=== PATIENT | female | born 1965 | race Caucasian/White ===

== ENCOUNTER → 2018-01-18 | Outpatient (CLI) | payer BC, OTHER ==
[2018-01-18 13:39] LABS: BASO % 0.6 % (0.0-1.0); EOS # 0.2 10^3/uL (0.0-0.50); EOS % 2.2 % (0.0-3.0); HEMATOCRIT 40.1 % (36.0-47.0); HEMOGLOBIN 12.9 g/dl (12.0-15.5); IMMATURE GRANULOCYTE % 0.6 % (0-3.0); LYMPH # 2.1 10^3/uL (1.5-4.5); LYMPH % 30.5 % (24.0-44.0); MEAN CORPUSCULAR HGB CONC 32.2 g/dl (32.0-36.5); MEAN CORPUSCULAR VOLUME 90.1 fl (80.0-96.0); MONO # 0.4 10^3/uL (0.0-0.8); MONO % 5.7 % (0.0-5.0); NEUTROPHILS # 4.1 10^3/uL (1.8-7.7); NEUTROPHILS % 60.4 % (36.0-66.0); PLATELET COUNT, AUTOMATED 323 10^3/uL (150-450); RED BLOOD COUNT 4.45 10^6/uL (4.00-5.40); RED CELL DISTRIBUTION WIDTH 11.9 % (11.5-14.5); WHITE BLOOD COUNT 6.8 10^3/uL (4.0-10.0)
[2018-01-18 14:33] LABS: ALBUMIN 3.2 GM/DL (3.2-5.2); ALBUMIN/GLOBULIN RATIO 0.82 (1.00-1.93); ALKALINE PHOSPHATASE 51 U/L (45-117); ALT/SGPT 16 U/L (12-78); ANION GAP 8 MEQ/L (8-16); AST/SGOT 14 U/L (7-37); BILIRUBIN,TOTAL 0.3 MG/DL (0.2-1.0); BLOOD UREA NITROGEN 9 MG/DL (7-18); C REACTIVE PROTEIN QUANTITATIV 1.28 MG/DL (0.00-0.30); CALCIUM LEVEL 8.2 MG/DL (8.5-10.1); CARBON DIOXIDE LEVEL 26 MEQ/L (21-32); CHLORIDE LEVEL 106 MEQ/L (98-107); CHOLESTEROL LEVEL 188 MG/DL (<200); CREATININE FOR GFR 0.74 MG/DL (0.55-1.30); FREE T4 0.87 NG/DL (0.76-1.46); GLOMERULAR FILTRATION RATE > 60.0 (>51); GLUCOSE, FASTING 103 MG/DL (70-100); HDL CHOLESTEROL 39 MG/DL (>40); LDL CHOLESTEROL 115 MG/DL (<100); NON-HDL-C 149 MG/DL; POTASSIUM SERUM 4.5 MEQ/L (3.5-5.1); SODIUM LEVEL 140 MEQ/L (136-145); TOTAL 25(OH) VITAMIN D 18.4 NG/ML (30.0-100.0); TOTAL PROTEIN 7.1 GM/DL (6.4-8.2); TRIGLYCERIDES LEVEL 171 MG/DL (<150)
[2018-01-18 15:29] LABS: ERYTHROCYTE SEDIMENTATION RATE 23 mm/hr (0-30)
== END ==
LOC: M SMT 09:25
DX: Z13.0 Encounter for screening for diseases of the blood and blood-forming organs and certain disorders involving the immune mechanism (principal); Z13.29 Encounter for screening for other suspected endocrine disorder; Z13.220 Encounter for screening for lipoid disorders; E55.9 Vitamin D deficiency, unspecified; R79.82 Elevated C-reactive protein (CRP)
CPT/HCPCS: 84443

== ENCOUNTER → 2018-03-05 | Outpatient (CLI) | payer BC, OTHER ==
[~2018-03-05] MED LIST: /ONDA4TA PO; AVIATAB PO; BUPR200T PO; CYMB1CAP PO; MOME50SP; PROZ20CA11 PO; [UNRECOGNIZED DRUG - CODE] PO
--- NOTE | 2018-03-05 12:10 | REP ---
Clinical: Bilateral hand pain. Technique: AP, lateral, and bilateral oblique views of the right and left hand. Findings: Generalized age-related changes are appreciated. The joint spaces appear symmetric and normal. No overt osteoarthritic or inflammatory arthritic changes are and identified. Surrounding soft tissues are normal. No acute fracture or dislocation. Impression: Normal symmetric age-appropriate appearance of the bilateral hands. No overt inflammatory/osteoarthritic degenerative changes appreciated. Electronically Signed by Isaac Fofana MD 03/05/2018 12:02 P
[2018-03-05 15:13] LABS: FERRITIN 72 NG/ML (8-252); IRON (FE) 90 UG/DL (50-170); PERCENT SATURATION 19.8 % (13.2-45.0); RHEUMATOID FACTOR QUANT < 10.0 IU/ML (<15.0); TOTAL IRON BINDING CAPACITY 454 UG/DL (250-450); URIC ACID 5.2 MG/DL (2.6-6.0)
[2018-03-06 14:53] LABS: ANTINUCLEAR ANTIBODIES DIRECT Negative (Negative); Lyme Disease IgG/IgM Antibodie <0.91 ISR (0.00-0.90); Lyme Disease IgM Ab Quantitati <0.80 index (0.00-0.79)
[2018-03-08 00:06] LABS: CYCLIC CITRULLINATED PEPTIDE 5 units (0-19)
== END ==
LOC: M SMT 11:16
PROVIDERS: ATTEND Family Medicine
DX: M25.549 Pain in joints of unspecified hand (principal); R79.82 Elevated C-reactive protein (CRP)

== ENCOUNTER → 2018-03-12 | Outpatient (CLI) | payer BC, OTHER ==
--- NOTE | 2018-03-16 14:25 | HOLTMON ---
[facility] Test Date: 2018-03-12 Pat Name: MARIA ELENA VELARDE Department: Room: - Gender: Secy: Venessa Machado/GABRIELE BRANCH : 1965 Requested By: BRITTANY LISA Order Number: [id number] Reading MD: Arthur Trejo Interpretive Statements Patient was monitored for 48 hours. 47 hours and 42 minutes were usable for analysis. Baseline mechanism was sinus rhythm with normal AV conduction and narrow QRS complex. Minimum HR was 64 bpm, maximum HR 136 bpm. There were no pauses, no PVC's and no atrial fibrillation. Total 180 PAC's were noted including 3 atrial couplets. No manual transmissions. Essentially normal Holter monitor. Electronically Signed On 03-16-2018 14:25:30 EST by Arthur Trejo
== END ==
LOC: M EKG 13:47
PROVIDERS: ATTEND Family Medicine
DX: R00.0 Tachycardia, unspecified (principal)

== ENCOUNTER 2018-08-09 06:29 | Emergency (ER) | payer BC, OTHER ==
[~2018-08-09] VITALS: Ht 167.6 cm; Wt 75.9 kg
[~2018-08-09 06:29] MED LIST changes: -/ONDA4TA PO; +ONDA-1 PO
[2018-08-09] MEDS ORDERED: GABA-843 PO (06:46)
[2018-08-09] MEDS ORDERED: PRIS100T PO (06:46)
[2018-08-09] MEDS ORDERED: CLON0.5T17 PO (06:46)
[2018-08-09] MEDS ORDERED: ACETAMINOPHEN 325 MG TAB PO ONE (08:00)
[2018-08-09] MEDS ORDERED: ONDANSETRON 4 MG ORAL DISINTEGRATING TAB (Q0162 PER 1MG) PO ONE (08:00)
[2018-08-09 08:35] LABS: BASO % 0.4 % (0.0-1.0); HEMATOCRIT 39.5 % (36.0-47.0); HEMOGLOBIN 13.2 g/dl (12.0-15.5); LYMPH # 0.4 10^3/uL (1.5-4.5); LYMPH % 8.1 % (24.0-44.0); MEAN CORPUSCULAR HEMOGLOBIN 30.1 pg (27.0-33.0); MEAN CORPUSCULAR HGB CONC 33.4 g/dl (32.0-36.5); MONO # 0.3 10^3/uL (0.0-0.8); MONO % 6.2 % (0.0-5.0); NEUTROPHILS % 85.1 % (36.0-66.0); PLATELET COUNT, AUTOMATED 230 10^3/uL (150-450); RED BLOOD COUNT 4.39 10^6/uL (4.00-5.40); WHITE BLOOD COUNT 4.7 10^3/uL (4.0-10.0)
[2018-08-09 09:03] LABS: ALT/SGPT 23 U/L (12-78); BILIRUBIN,DIRECT 0.1 MG/DL (0.0-0.2); BILIRUBIN,TOTAL 0.3 MG/DL (0.2-1.0); BLOOD UREA NITROGEN 6 MG/DL (7-18); C REACTIVE PROTEIN QUANTITATIV 8.21 MG/DL (0.00-0.30); CALCIUM LEVEL 8.1 MG/DL (8.5-10.1); CARBON DIOXIDE LEVEL 24 MEQ/L (21-32); CHLORIDE LEVEL 105 MEQ/L (98-107); CREATININE FOR GFR 0.81 MG/DL (0.55-1.30); ERYTHROCYTE SEDIMENTATION RATE 34 mm/hr (0-30); GLOMERULAR FILTRATION RATE > 60.0 (>51); GLUCOSE, FASTING 121 MG/DL (70-100); POTASSIUM SERUM 3.8 MEQ/L (3.5-5.1); SODIUM LEVEL 136 MEQ/L (136-145); TOTAL PROTEIN 6.8 GM/DL (6.4-8.2)
[2018-08-09 10:01] VITALS: BP 99/60
[2018-08-10 17:14] LABS: Lyme Disease IgG/IgM Antibodie <0.91 ISR (0.00-0.90); Lyme Disease IgM Ab Quantitati <0.80 index (0.00-0.79)
== END 2018-08-09 10:06 | disposition home or self-care (01) ==
LOC: M ED 06:29
DX: B34.9 Viral infection, unspecified (principal); R11.2 Nausea with vomiting, unspecified; R19.7 Diarrhea, unspecified; R51 Headache; F41.9 Anxiety disorder, unspecified; F32.9 Major depressive disorder, single episode, unspecified; Z79.899 Other long term (current) drug therapy; Z79.3 Long term (current) use of hormonal contraceptives
CPT/HCPCS: 36415; 80048; 80076; 85025; 85652; 86140; 86617; 99284; Q0162

== ENCOUNTER → 2018-11-14 | Outpatient (CLI) | payer BC, OTHER ==
[~2018-11-14] MED LIST changes: +CLON0.5T17 PO; +GABA-843 PO; +PRIS100T PO
[2018-11-14 13:10] LABS: BASO # 0.1 10^3/uL (0.0-0.2); BASO % 0.7 % (0.0-1.0); EOS # 0.1 10^3/uL (0.0-0.5); EOS % 1.6 % (0.0-3.0); HEMATOCRIT 40.4 % (36.0-47.0); HEMOGLOBIN 13.1 g/dl (12.0-15.5); LYMPH # 1.8 10^3/uL (1.5-5.0); LYMPH % 26.8 % (24.0-44.0); MEAN CORPUSCULAR HEMOGLOBIN 29.7 pg (27.0-33.0); MEAN CORPUSCULAR HGB CONC 32.4 g/dl (32.0-36.5); MEAN CORPUSCULAR VOLUME 91.6 fl (80.0-96.0); MONO # 0.5 10^3/uL (0.0-0.8); NEUTROPHILS # 4.4 10^3/uL (1.5-8.5); NEUTROPHILS % 63.6 % (36.0-66.0); PLATELET COUNT, AUTOMATED 317 10^3/uL (150-450); RED BLOOD COUNT 4.41 10^6/uL (4.00-5.40); WHITE BLOOD COUNT 6.8 10^3/uL (4.0-10.0)
[2018-11-14 13:24] LABS: ALBUMIN 3.4 GM/DL (3.2-5.2); ALT/SGPT 17 U/L (12-78); BILIRUBIN,TOTAL 0.4 MG/DL (0.2-1.0); BLOOD UREA NITROGEN 8 MG/DL (7-18); C REACTIVE PROTEIN QUANTITATIV 1.92 MG/DL (0.00-0.30); CALCIUM LEVEL 8.7 MG/DL (8.5-10.1); CARBON DIOXIDE LEVEL 28 MEQ/L (21-32); CHLORIDE LEVEL 105 MEQ/L (98-107); CHOLESTEROL LEVEL 202 MG/DL (<200); CREATININE FOR GFR 0.76 MG/DL (0.55-1.30); FREE T4 0.86 NG/DL (0.76-1.46); GLOMERULAR FILTRATION RATE > 60.0 (>51); GLUCOSE, FASTING 96 MG/DL (70-100); HDL CHOLESTEROL 44 MG/DL (>40); LDL CHOLESTEROL 121 MG/DL (<100); NON-HDL-C 158 MG/DL; POTASSIUM SERUM 4.6 MEQ/L (3.5-5.1); SODIUM LEVEL 139 MEQ/L (136-145); TOTAL PROTEIN 7.3 GM/DL (6.4-8.2); TRIGLYCERIDES LEVEL 183 MG/DL (<150)
[2018-11-14 13:26] LABS: TOTAL 25(OH) VITAMIN D 27.1 NG/ML (30.0-100.0)
[2018-11-14 14:29] LABS: ERYTHROCYTE SEDIMENTATION RATE 28 mm/hr (0-30)
== END ==
LOC: M SMT 09:08
PROVIDERS: ATTEND Family Medicine
DX: Z13.220 Encounter for screening for lipoid disorders (principal); Z13.0 Encounter for screening for diseases of the blood and blood-forming organs and certain disorders involving the immune mechanism; Z13.29 Encounter for screening for other suspected endocrine disorder; R79.82 Elevated C-reactive protein (CRP); E55.9 Vitamin D deficiency, unspecified

== ENCOUNTER → 2019-03-04 | Outpatient (CLI) | payer OTHER, BC ==
[2019-03-04 13:05] LABS: BASO % 0.5 % (0.0-1.0); BLOOD UREA NITROGEN 12 MG/DL (7-18); CALCIUM LEVEL 8.6 MG/DL (8.5-10.1); CARBON DIOXIDE LEVEL 28 MEQ/L (21-32); CHLORIDE LEVEL 105 MEQ/L (98-107); CREATININE FOR GFR 0.74 MG/DL (0.55-1.30); EOS # 0.2 10^3/uL (0.0-0.5); EOS % 2.5 % (0.0-3.0); GLOMERULAR FILTRATION RATE > 60.0 (>51); GLUCOSE, FASTING 92 MG/DL (70-100); HEMATOCRIT 43.5 % (36.0-47.0); HEMOGLOBIN 13.4 g/dl (12.0-15.5); LYMPH # 2.4 10^3/uL (1.5-5.0); LYMPH % 30.6 % (24.0-44.0); MEAN CORPUSCULAR HEMOGLOBIN 28.6 pg (27.0-33.0); MEAN CORPUSCULAR HGB CONC 30.8 g/dl (32.0-36.5); MEAN CORPUSCULAR VOLUME 92.9 fl (80.0-96.0); MONO # 0.5 10^3/uL (0.0-0.8); MONO % 6.1 % (0.0-5.0); NEUTROPHILS # 4.8 10^3/uL (1.5-8.5); NEUTROPHILS % 59.9 % (36.0-66.0); PLATELET COUNT, AUTOMATED 334 10^3/uL (150-450); RED BLOOD COUNT 4.68 10^6/uL (4.00-5.40); SODIUM LEVEL 139 MEQ/L (136-145); WHITE BLOOD COUNT 7.9 10^3/uL (4.0-10.0)
[2019-03-04 13:16] LABS: INR 1.04; PROTHROMBIN TIME 13.3 SECONDS (11.8-14.0)
== END ==
LOC: M PLALAB 10:41
PROVIDERS: ATTEND Family Medicine
DX: M51.86 Other intervertebral disc disorders, lumbar region (principal)

== ENCOUNTER → 2019-09-09 | Outpatient (REF) | payer OTHER | LOC: M LAB REF 15:30 | PROVIDERS: ATTEND Family Medicine | DX: N39.46 Mixed incontinence (principal) ==

== ENCOUNTER → 2020-09-16 | Outpatient (REF) | payer OTHER ==
[~2020-09-16] MED LIST changes: +GABA-282 PO; -GABA-843 PO
== END ==
LOC: M LAB REF 14:58
PROVIDERS: ATTEND Physician Assistant
DX: N39.0 Urinary tract infection, site not specified (principal)

== ENCOUNTER → 2020-10-19 | Outpatient (CLI) | payer BC, OTHER ==
[2020-10-19 13:10] LABS: BASO # 0.1 10^3/uL (0.0-0.2); BASO % 0.8 % (0.0-1.0); EOS # 0.1 10^3/uL (0.0-0.5); EOS % 1.8 % (0.0-3.0); HEMATOCRIT 40.4 % (36.0-47.0); HEMOGLOBIN 13.1 g/dl (12.0-15.5); LYMPH # 1.6 10^3/uL (1.5-5.0); LYMPH % 25.2 % (24.0-44.0); MEAN CORPUSCULAR HEMOGLOBIN 29.2 pg (27.0-33.0); MEAN CORPUSCULAR HGB CONC 32.4 g/dl (32.0-36.5); MEAN CORPUSCULAR VOLUME 90.2 fl (80.0-96.0); MONO # 0.4 10^3/uL (0.0-0.8); MONO % 6.9 % (2.0-8.0); NEUTROPHILS # 4.1 10^3/uL (1.5-8.5); PLATELET COUNT, AUTOMATED 342 10^3/uL (150-450); RED BLOOD COUNT 4.48 10^6/uL (4.00-5.40); WHITE BLOOD COUNT 6.2 10^3/uL (4.0-10.0)
[2020-10-19 15:13] LABS: ALBUMIN 3.7 GM/DL (3.2-5.2); ALT/SGPT 19 U/L (12-78); BILIRUBIN,TOTAL 0.3 MG/DL (0.2-1.0); BLOOD UREA NITROGEN 8 MG/DL (7-18); CALCIUM LEVEL 9.1 MG/DL (8.5-10.1); CARBON DIOXIDE LEVEL 28 MEQ/L (21-32); CHLORIDE LEVEL 106 MEQ/L (98-107); CHOLESTEROL LEVEL 231 MG/DL (<200); CREATININE FOR GFR 0.63 MG/DL (0.55-1.30); FREE T4 0.84 NG/DL (0.76-1.46); GLOMERULAR FILTRATION RATE > 60.0 (>51); GLUCOSE, FASTING 107 MG/DL (70-100); HDL CHOLESTEROL 55 MG/DL (>40); LDL CHOLESTEROL 155 MG/DL (<100); NON-HDL-C 176 MG/DL; POTASSIUM SERUM 4.5 MEQ/L (3.5-5.1); SODIUM LEVEL 139 MEQ/L (136-145); TOTAL PROTEIN 7.4 GM/DL (6.4-8.2); TRIGLYCERIDES LEVEL 103 MG/DL (<150)
== END ==
LOC: M PLALAB 09:53
PROVIDERS: ATTEND Family Medicine
DX: Z13.220 Encounter for screening for lipoid disorders (principal); Z13.29 Encounter for screening for other suspected endocrine disorder; Z13.0 Encounter for screening for diseases of the blood and blood-forming organs and certain disorders involving the immune mechanism

== ENCOUNTER 2020-11-17 14:27 | Emergency (ER) | payer OTHER, BC ==
[~2020-11-17] VITALS: Ht 167.6 cm; Wt 77.5 kg
[2020-11-17] MEDS ORDERED: DESV100T3 (14:33)
[2020-11-17] MEDS ORDERED: MYRB50TA (14:33)
--- OUTSIDE RECORDS SUMMARY | 2020-11-17 14:33 | CCD | Continuity of Care Document ---
Author Author Kinsey FRANK PA Organization Unknown [place] [address] Phone [phone] Care Team Providers Care Alarm Mechanism Adjuster Name Role Phone Miley Mayes D.O. AUTM [facility] AUTM [phone] Problems Active Problems Provider Date Moderate recurrent major depression Sari Jaimes Onset: 02/25/2015 Generalized anxiety disorder Miley Mayes D.O. Onse t: 02/25/2015 Allergic rhinitis Miley Mayes D.O. Onset: 2015 Migraine without aura, not refractory Miley Mayes D.O. Onset: 02/25/2015 Screening mammography Miley Mayes D.O. Onset: 02/06 Family history of breast cancer Miley Mayes D.O. O nset: 02/25/2015 Adult health examination Miley Mayes D.O. Onset: 0 10/07/2015 Vitamin D deficiency Miley Mayes D.O. Onset: 11/11 Mixed hyperlipidemia Miley Mayes D.O. Onset: 11/11 Social History Type Date Description Comments Sex Unknown ETOH Use Consumes 2 glasses of wine per w [place] Tobacco Use Start: Unknown Patient has never smoked Recreational Drug Use Denies Drug Use Smoking Status Reviewed: 10/28/19 Patient has never smoked Exercise Type/Frequency Exercises sporadically Sun Exposure Uses sunscreen Seat Belt/Car Seat Always uses seat belt Allergies, Adverse Reactions, Alerts Active Allergies Reaction Severity Comments Date Oxycodone flush. 09/09/2019 Inactive Allergies NKDA 02/25/2015 Medications Active Medications SIG Qnty Indications Ordering Provide r Date Ciprofloxacin HCL 500mg Tablets one tablet every 12 hours 14tabs N39.0 Sari JaimesO. 09/16 Mupirocin 2% Ointment apply to irritated area on the left arm twice daily until resolved 22gm L03.114 Sari ZaldivarOSukhjinder 08/07/2018 Mometasone Furoate 50mcg/Act Suspe nsion Shake Liquid And Use 1 [place] In Each Nostril Twice Daily 51units Miley Mayes D.O. 08/03/2015 Zyrtec Allergy 10mg Tablets 1 by mouth every night 90tabs J30.2 Sari JaimesO. 02/25 Bupropion HCL ER (SR) 200mg Tablets ER 12HR 1 by mouth twice daily Unknown Clonazepam 0.5mg Tablets take one tablet by mouth twice a day. #[id number] Unknown Desvenlafaxine ER 100mg Tablets ER 24HR one tablets at bedtime Unknown 0 Zolmitriptan 2.5mg Tablets Dispers Dissolve 1 Tablet On The Tongue AT Onset Of Headache as Directed. Maximum Daily Dose Is 4 Tablets 18tabs Sari JaimesO. Myrbetriq 50mg Tablets ER 24HR take one tablet by mouth daily. Unknown 0 History Medications Cephalexin 500mg Tablets take one tablet by mouth every 12 hours for seven days. 14tabs N39.0 Sari RibeiroO. 09/16/2020 - 09/16/2020 Cipro 500mg Tablets take one tablet by mouth every 12 hours for seven days. 14tabs N39.0 Sari ArmentaO. 09/16/2020 - 09/16/2020 Medications Administered in Office Medication SIG Qnty Indications Ordering Provider Date Immunization Adminstration 2+ Single Or Combination Injection Sari GodfreyOSukhjinder 2019 Immunization Administration Single Or Co mbination Injection Patti Jaimes 2019 Immunizations CPT Code Status Date Vaccine Lot # [id number] Given 2019 Tetanus, Diphthe shad Toxoids/Acellular Pertussis Vaccine 7 Or > [id number] U-Flu Given 11/18/2018 Influenza,Unspecified U-Flu Given 12/13/2017 Influenza,Unspecified Vital Signs Date Vital Result Comment 09/16/2020 4:19pm BP Systolic 140 mmHg BP Diastolic 80 mmHg Height 65.8 inches 5'5.80" Heart Rate 99 /min Respiratory Rate 14 /min Body Temperature 99.0 F O2 % BldC Oximetry 99 % [place] Body Weight 125 lb 10/30/2019 1:46pm BP Systolic 128 mmHg BP Diastolic 78 mmHg Height 65.8 inches 5'5.80" Weight 180.38 lb BMI (Body Mass Index) 29.3 kg/m2 Heart Rate 106 /min Respiratory Rate 18 /min Body Temperature 98.8 F O2 % BldC Oximetry 99 % [place] Body Weight 125 lb Results Test Acquired Date Facility Test Result H/L Range Note Inhouse Ua 09/16/2020 Inhouse Inhouse Leukocytes ++ Inhouse Nitrite neg Inhouse Urobilinogen neg Inhouse Protein neg Inhouse PH 5 Inhouse Hemoglobin +++ Inhouse Specific [place] 1.005 Inhouse Ketones neg Inhouse Bilirubin neg Inhouse Glucose neg Laboratory test finding 09/16/2020 [place] [address] [phone] Urine Culture FULL REPORT IN L <SEE NOTE> Normal 1 1 FULL REPORT IN LAB NOTES (eC W and [facility]). ORGANISM 1: ESCHERICHIA COLI COLONY COUNT >100,000 ORGANISM 2: ENTEROCOCCUS FAECALIS COLONY COUNT >100,000 ORGANISM 1: ESCHERICHIA COLI ORGANISM 2: ENTEROCOCCUS FAECALIS ESCHERICHIA COLI: REACTION TRIMETHOPRIM/SULFAMETHOXAZOLE IV 160mg TMP & 800mg SMXq6h <=20 S TRIMETHOPRIM/SULFAMETHOXAZOLE PO Bactrim DS Bid <=20 S AMPICILLIN IV 500mg q6h <=2 S AMPICILLIN PO 500mg q6h fasting <=2 S GENTAMICIN IV 80mg q8h <=1 S NITROFURANTOIN PO 100mg BID <=16 S CEFAZOLIN IV 1gm q8h <=4 S LEVOFLOXACIN IV 500mg qd <=0.12 S LEVOFLOXACIN PO 250mg qd <=0.12 S LEVOFLOXACIN PO 500mg qd <=0.12 S TOBRAMYCIN IV 80mg q8h <=1 S CEFTRIAXONE IV 1gm q24h <=1 S CEFTAZIDIME IV 1gm q8h <=1 S AMPICILLIN/SULBACTAM IV 1.5g q6h <=2 S PIPERACILLIN/TAZOBACTAM IV 2.25 gm q6h <=4 S AZTREONAM IV 1gm q8h <=1 S ERTAPENEM IV 1gm qd <=0.5 S MEROPENEM IV 1 gm q8h <=0.25 S MEROPENEM IV 500 mg q8h <=0.25 S TIGECYCLINE IV 50mg q12h <=0.5 S CEFEPIME IV 1 gm q12h <=1 S CEFEPIME IV 2 gm q12h <=1 S EXTD BRD SPCTRM BETA LACTAMASE IV NEGATIVE FOR ESBL ENTEROCOCCUS FAECALIS: REACTION TETRACYCLINE PO 250 mg qid >=16 R PENICILLIN G IV 1 mu q6H 4 S PENICILLIN G IV 1 mu q6h 4 S PENICILLIN G PO 250mg q6h fasting 4 S AMPICILLIN IV 500mg q6h <=2 S AMPICILLIN PO 500mg q6h fasting <=2 S ERYTHROMYCIN IV 500mg q6h 2 I ERYTHROMYCIN PO 500mg q6h 2 I GENTAMICIN 500 IV 80mg q8h S NITROFURANTOIN PO 100mg BID <=16 S LEVOFLOXACIN IV 500mg qd 1 S LEVOFLOXACIN PO 250mg qd 1 S LEVOFLOXACIN PO 500mg qd 1 S CIPROFLOXACIN IV 400mg bid 1 S CIPROFLOXACIN PO 500mg q12h 1 S VANCOMYCIN IV 500mg q8h 1 S LINEZOLID (ZYVOX) IV 600MG Q12HR 2 S LINEZOLID (ZYVOX) PO 600MG Q12HR 2 S Procedures Date Code Description Status 09/16/2020 31453 Office/Outpatient Established Mo d MDM 30-39 Min Completed 11/23/2015 [id number] Mammogram Completed Medical Devices Description No Information Available Encounters Type Date Location Provider Dx Diagnosis Office Visit 09/16/2020 4:00p [facility] ANGELA Guerin N39.0 Urinary tract infection, sit e not specified J06.9 Acute upper respiratory infe ction, unspecified Assessments Date Code Description Provider 09/16/2020 N39.0 Urinary tract infection, site no t specified ANGELA Simon 09/16/2020 J06.9 Acute upper respiratory infectio n, unspecified ANGELA Simon Plan of Treatment Future Appointment(s):* 10/29/2020 8:40 am - Miley Mayes D.O. at [facility] Functional Status Description No Information Available Mental Status Description No Information Available Referrals Description No Information Available
--- OUTSIDE RECORDS SUMMARY | 2020-11-17 14:33 | CCD | Continuity of Care Document ---
Author Author Kinsey MAYES D.O. Organization Unknown Address [address] [place] [address] Phone [phone] Care Team Providers Care Housekeeping And Laundry Team Leader Name Role Phone Miley Mayes D.O. AUTM [phone] [facility] AUTM [phone] [facility] AUTM [phone] Problems Active Problems Provider Date Moderate recurrent [...] Consumes 2 glasses of wine per w [place] Tobacco Use Start: Unknown Patient has never smoked Recreational Drug Use Denies Drug Use Smoking Status Reviewed: 11/16/20 Patient has never smoked Exercise Type/Frequency Exercises sporadically Sun Exposure Uses sunscreen Seat Belt/Car Seat Always uses seat belt Allergies and adverse reactions Active Allergies Criticality Reaction | Severity Comments Date Oxycodone Unable to assess criticality flush. 09/09/2019 Inactive Allergies NKDA Unable to assess criticality 02/25/2015 Medications Active Medications SIG Qnty Indications Ordering Provide r Date Mupirocin 2% Ointment apply to irritated area on the left arm twice daily until resolved 22gm L03.114 Sari ZaldivarO. 08/07/2018 Mometasone Furoate 50mcg/Act Suspe nsion Shake Liquid And Use 1 [place] In Each Nostril Twice Daily 51units Miley Mayes D.O. 08/03/2015 Zyrtec Allergy 10mg Tablets 1 by mouth every night 90tabs J30.2 Patti Jaimes.O. 02/25 Bupropion HCL ER (SR) 200mg Tablets ER 12HR 1 by mouth twice daily Unknown Clonazepam 0.5mg Tablets take one tablet by mouth twice a day. #[id number] Unknown Desvenlafaxine ER 100mg Tablets ER 24HR one tablets at bedtime Unknown 0 Zolmitriptan 2.5mg Tablets Dispers Dissolve 1 Tablet On The Tongue AT Onset Of Headache as Directed. Maximum Daily Dose Is 4 Tablets 18tabs Patti Jaimes.O. Myrbetriq 50mg Tablets ER 24HR take one tablet by mouth daily. Unknown 0 History Medications Cephalexin 500mg Tablets take one tablet by mouth every 12 hours for seven days. 14tabs N39.0 Sari RibeiroO. 09/16/2020 - 09/16/2020 Cipro 500mg Tablets take one tablet by mouth every 12 hours for seven days. 14tabs N39.0 Sari ArmentaO. 09/16/2020 - 09/16/2020 Ciprofloxacin HCL 500mg Tablets one tablet every 12 hours 14tabs N39.0 Sari JaimesO. 09/16 - 11/16/2020 Medications Administered in Office Medication SIG Qnty Indications Ordering Provider Date Immunization Adminstration 2+ Single Or Combination Injection Miley Antoine D.O. 2019 Immunization Administration Single Or Co mbination Injection Patti Jaimes 2019 Immunizations CPT Code Status Date Vaccine Lot # [id number] Given 2019 Tetanus, Diphthe shad Toxoids/Acellular Pertussis Vaccine 7 Or > [id number] U-Flu Given 11/18/2018 Influenza,Unspecified U-Flu Given 12/13/2017 Influenza,Unspecified Vital Signs Date Vital Result Comment 11/16/2020 9:54am BP Systolic 120 mmHg BP Diastolic 78 mmHg Height 65.8 inches 5'5.80" Weight 170.00 lb BMI (Body Mass Index) 27.6 kg/m2 Heart Rate 81 /min Body Temperature 97.8 F O2 % BldC Oximetry 98 % [place] Body Weight 125 lb 09/16/2020 4:19pm BP Systolic 140 mmHg BP Diastolic 80 mmHg Height 65.8 inches 5'5.80" Heart Rate 99 /min Respiratory Rate 14 /min Body Temperature 99.0 F O2 % BldC Oximetry 99 % [place] Body Weight 125 lb Results Test Acquired Date Facility Test Result H/L Range Note Comprehensive Metabolic Profil 10/19/2020 [place] [id number] [phone] Glucose, Fasting 107 mg/dL High 70-100 Blood Urea Nitrogen 8 mg/dL Normal 7-18 Creatinine For GFR 0.63 mg/dL Normal 0.55-1.30 Glomerular Filtration Rate > 60.0 Normal >51 1 Sodium Level 139 mEq/L Normal 136-145 Potassium Serum 4.5 mEq/L Normal 3.5-5.1 Chloride Level 106 mEq/L Normal 98-107 Carbon Dioxide Level 28 mEq/L Normal 21-32 Anion Gap 5 mEq/L Low 8-16 Calcium Level 9.1 mg/dL Normal 8.5-10.1 Ast/Sgot 12 U/L Normal 7-37 Alt/SGPT 19 U/L Normal 12-78 Alkaline Phosphatase 75 U/L Normal 45-117 Bilirubin,Total 0.3 mg/dL Normal 0.2-1.0 Total Protein 7.4 GM/DL Normal 6.4-8.2 Albumin 3.7 GM/DL Normal 3.2-5.2 Albumin/Globulin Ratio 1.0 Low 1.2-2.2 FT4&TSH Panel 10/19/2020 [facility] [address] [place] [address] [phone] Thyroid Stimulating Hormone 1.940 uIU/ML Normal 0. 358-3.740 Free T4 0.84 ng/dL Normal 0.76-1.46 CBC With Differential 10/19/[address] [address] [phone] White Blood Count 6.2 10 Normal 4.0-10.0 Red Blood Count 4.48 10 Normal 4.00-5.40 Hemoglobin 13.1 g/dL Normal 12.0-15.5 Hematocrit 40.4 % Normal 36.0-47.0 Mean Corpuscular Volume 90.2 fl Normal 80.0-96.0 Mean Corpuscular Hemoglobin 29.2 pg Normal 27.0-33.0 Mean Corpuscular HGB Conc 32.4 g/dL Normal 32.0-36.5 Red Cell Distribution Width 12.6 % Normal 11.5-14.5 Platelet Count, Automated 342 10 Normal 150-450 Neutrophils % 65.0 % Normal 36.0-66.0 Lymph % 25.2 % Normal 24.0-44.0 [place] % 6.9 % Normal 2.0-8.0 Eos % 1.8 % Normal 0.0-3.0 Baso % 0.8 % Normal 0.0-1.0 Immature Granulocyte % 0.3 % Normal 0-3.0 Nucleated Red Blood Cell % 0.0 % Normal 0-0 Neutrophils # 4.1 10 Normal 1.5-8.5 Lymph # 1.6 10 Normal 1.5-5.0 [place] # 0.4 10 Normal 0.0-0.8 Eos # 0.1 10 Normal 0.0-0.5 Baso # 0.1 10 Normal 0.0-0.2 Lipid Panel 10/19/2020 [facility] [address] [place] [address] [phone] Triglycerides Level 103 mg/dL Normal <150 Cholesterol Level 231 mg/dL High <200 HDL Cholesterol 55 mg/dL Normal >40 LDL Cholesterol 155 mg/dL High <100 Non-HDL-C 176 mg/dL Normal Cholesterol Risk Ratio 4.200 Normal <5 Inhouse Ua 09/16/2020 Inhouse Inhouse Leukocytes ++ Inhouse Nitrite neg Inhouse Urobilinogen neg Inhouse Protein neg Inhouse PH 5 Inhouse Hemoglobin +++ Inhouse Specific [place] 1.005 Inhouse Ketones neg Inhouse Bilirubin neg Inhouse Glucose neg Laboratory test finding 09/16/[address] [address] [phone] Urine Culture FULL REPORT IN L <SEE NOTE> Normal 2 1 Units are mL/min/1.73 m2 Chronic Kidney Disease Staging per NKF: Stage I & II GFR >=60 Normal to Mildly Decreased Stage III GFR 30-59 Moderately Decreased Stage IV GFR 15-29 Severely Decreased Stage V GFR <15 Very Little GFR Left ESRD GFR <15 on POST TENSIONING IRONWORKER HELPER 2 FULL REPORT IN LAB NOTES (eC W and [facility]). ORGANISM 1: ESCHERICHIA COLI COLONY COUNT >100,000 [...] 2 S Procedures Date Code Description Status 11/16/2020 37189 Preventive Visit Est 40-64 Yrs C ompleted 11/16/2020 99339 Office/Outpatient Established Lo w MDM 20-29 Min Completed 09/16/2020 18921 Office/Outpatient Established Mo d MDM 30-39 Min Completed 11/23/2015 [id number] Mammogram Completed Medical Devices Description No Information Available Encounters Type Date Location Provider Dx Diagnosis Office Visit 11/16/2020 9:40a Family [facility] w Damian Mayes D.O. Z00.01 Encounter for general adult medical exam w abnormal findings F33.1 Major depressive disorder, r ecurrent, moderate F41.1 Generalized anxiety disorder M51.86 Other intervertebral disc di sorders, lumbar region Z12.11 Encounter for screening for malignant neoplasm of colon Z12.31 Encntr screen mammogram for malignant neoplasm of breast E78.00 Pure hypercholesterolemia, u nspecified M79.621 Pain in right upper arm M79.622 Pain in left upper arm Office Visit 09/16/2020 4:00p [facility] ANGELA Simon N39.0 Urinary tract infection, sit e not specified J06.9 Acute upper respiratory infe ction, unspecified Assessments Date Code Description Provider 11/16/2020 Z00.01 Encounter for genera l adult medical examination with abnormal findings Patti Jaimes.OSukhjinder 11/16/2020 F33.1 Major depressive disorder, recur rent, moderate Miley Romero D.OSukhjinder 11/16/2020 F41.1 Generalized anxiety disorder Venus diane Patti Mayes.OSukhjinder 11/16/2020 M51.86 Other intervertebral disc disord ers, lumbar region Patti Jamies.OSukhjinder 11/16/2020 Z12.11 Encounter for screening for dahlia gnant neoplasm of colon Patti Jaimes.OSukhjinder 11/16/2020 Z12.31 Encounter for screen ing mammogram for malignant neoplasm of breast Patti Jaimes.OSukhjinder 11/16/2020 E78.00 Pure hypercholesterolemia, unspe cified Patti Jaimes.OSukhjinder 11/16/2020 M79.621 Pain in right upper arm Patti Ribeiro.OSukhjinder 11/16/2020 M79.622 Pain in left upper arm Patti Fontanez.OSukhjinder 09/16/2020 N39.0 Urinary tract infection, site no t specified ANGELA Simon 09/16/2020 J06.9 Acute upper respiratory infectio n, unspecified ANGELA Simon Plan of Treatment Future Appointment(s):* 11/18/2021 10:00 am - Miley Mayes D.O. at [facility] * 01/14/2021 11:00 am - Miley Mayes D.O. at [facility] Functional Status Description No Information Available Mental Status Description No Information Available Referrals Refer to Reason for Referral Status Appt Date Ramsey Andino M.D. This is a 55 year old female past due for repeat colonoscopy. Please evaluate and treat. Sent [facility] [address], [address] [place], [place] [address] [phone] [facility], This is a 55 year old female with bilateral upper arm pain and sometimes weakness. She has a history of lumbar spinal stenosis and I suspect cervical stenosis. Please evaluate and treat. Sent [facility], [address] [place] [address] [phone]
--- OUTSIDE RECORDS SUMMARY | 2020-11-17 14:33 | CCD | Continuity of Care Document ---
Author Author Kinsey FRANK PA Organization Unknown [place] [address] Phone [phone] Care Team Providers Care Tap Out Operator Name Role Phone Miley Mayes D.O. AUTM [phone] [facility] AUTM [phone] Problems Active Problems Provider Date Moderate recurrent [...] Consumes 2 glasses of wine per w [place] Tobacco Use Start: Unknown Patient has never smoked Recreational Drug Use Denies Drug Use Smoking Status Reviewed: 10/28/19 Patient has never smoked Exercise Type/Frequency Exercises sporadically Sun Exposure Uses sunscreen Seat Belt/Car Seat Always uses seat belt Allergies, Adverse Reactions, Alerts Active Allergies Criticality Reaction | Severity Comments [...] arm twice daily until resolved 22gm L03.114 Miley Romero D.O. 08/07/2018 Mometasone Furoate 50mcg/Act Suspe nsion Shake Liquid And Use 1 [place] In Each Nostril Twice Daily 51units Sari JaimesO. 08/03/2015 Zyrtec Allergy 10mg Tablets 1 by mouth every night 90tabs J30.2 Patti Jaimes.O. 02/25 Bupropion HCL ER (SR) 200mg Tablets ER 12HR 1 by mouth twice daily Unknown Clonazepam 0.5mg Tablets take one tablet by mouth twice a day. #[id number] Unknown Desvenlafaxine ER 100mg Tablets ER 24HR [...] CPT Code Status Date Vaccine Lot # [id number] Given 2019 Tetanus, Diphthe shad Toxoids/Acellular Pertussis Vaccine 7 Or > [id number] U-Flu Given 11/18/2018 Influenza,Unspecified U-Flu Given 12/13/2017 Influenza,Unspecified Vital Signs Date Vital Result Comment 09/16/2020 4:19pm BP Systolic 140 mmHg BP Diastolic 80 mmHg Height 65.8 inches 5'5.80" Heart Rate 99 /min Respiratory Rate 14 /min Body Temperature 99.0 F O2 % BldC Oximetry 99 % [place] Body Weight 125 lb 10/30/2019 1:46pm BP Systolic 128 mmHg BP Diastolic 78 mmHg Height 65.8 inches 5'5.80" Weight 180.38 lb BMI (Body Mass Index) 29.3 kg/m2 Heart Rate 106 /min Respiratory Rate 18 /min Body Temperature 98.8 F O2 % BldC Oximetry 99 % [place] Body Weight 125 lb Results Test Acquired Date Facility Test Result H/L Range Note Inhouse Ua 09/16/2020 Inhouse Inhouse Leukocytes ++ Inhouse Nitrite neg Inhouse Urobilinogen neg Inhouse Protein neg Inhouse PH 5 Inhouse Hemoglobin +++ Inhouse Specific [place] 1.005 Inhouse Ketones neg Inhouse Bilirubin neg Inhouse Glucose neg Laboratory test finding 09/16/2020 [place] [id number] [phone] Urine Culture FULL REPORT IN L <SEE [...] S Procedures Date Code Description Status 09/16/2020 37700 Office/Outpatient Established Mo d MDM 30-39 Min Completed 11/23/2015 [id number] Mammogram Completed Medical Devices Description No Information Available Encounters Type Date Location Provider Dx Diagnosis Office Visit 09/16/2020 4:00p [facility] ANGELA Simon N39.0 Urinary tract infection, sit e not specified J06.9 Acute upper respiratory infe ction, unspecified Assessments Date Code Description Provider 09/16/2020 N39.0 Urinary tract infection, site no t specified ANGELA Simon 09/16/2020 J06.9 Acute upper respiratory infectio n, unspecified ANGELA Simon Plan of Treatment Future Appointment(s):* 10/29/2020 8:40 am - Miley Mayes D.O. at [facility] Functional Status Description No Information Available Mental Status Description No Information Available Referrals Description No Information Available
--- OUTSIDE RECORDS SUMMARY | 2020-11-17 14:33 | CCD | Continuity of Care Document ---
Author Author Kinsey MAYES D.O. Organization Unknown Address [address] [place] [address] Phone [phone] Care Team Providers Care Agent Telegrapher Name Role Phone Miley Mayes D.O. AUTM [facility] AUTM [phone] Problems Active Problems Provider Date Moderate recurrent [...] Consumes 2 glasses of wine per w [place] Tobacco Use Start: Unknown Patient has never [...] tablet every 12 hours 14tabs N39.0 Sari JaimesOSukhjinder 09/16 Mupirocin 2% Ointment apply to irritated area on the left arm twice daily until resolved 22gm L03.114 Sari ZaldivarOSukhjinder 08/07/2018 Mometasone Furoate 50mcg/Act Suspe nsion Shake Liquid And Use 1 [place] In Each Nostril Twice Daily 51units Miley Mayes D.O. 08/03/2015 Zyrtec Allergy 10mg Tablets 1 by mouth every night 90tabs J30.2 Sari JaimesO. 02/25 Bupropion HCL ER (SR) 200mg Tablets ER 12HR 1 by mouth twice daily Unknown Clonazepam 0.5mg Tablets take one tablet by mouth twice a day. #[id number] Unknown Desvenlafaxine ER 100mg Tablets ER 24HR [...] CPT Code Status Date Vaccine Lot # [id number] Given 2019 Tetanus, Diphthe shad Toxoids/Acellular Pertussis Vaccine 7 Or > [id number] U-Flu Given 11/18/2018 Influenza,Unspecified U-Flu Given 12/13/2017 Influenza,Unspecified Vital Signs Date Vital Result Comment 09/16/2020 4:19pm BP Systolic 140 mmHg BP Diastolic 80 mmHg Height 65.8 inches 5'5.80" Heart Rate 99 /min Respiratory Rate 14 /min Body Temperature 99.0 F O2 % BldC Oximetry 99 % [place] Body Weight 125 lb 10/30/2019 1:46pm BP Systolic 128 mmHg BP Diastolic 78 mmHg Height 65.8 inches 5'5.80" Weight 180.38 lb BMI (Body Mass Index) 29.3 kg/m2 Heart Rate 106 /min Respiratory Rate 18 /min Body Temperature 98.8 F O2 % BldC Oximetry 99 % [place] Body Weight 125 lb Results Test Acquired Date Facility Test Result H/L Range Note CBC With Differential 10/19/[address] [address] [phone] White Blood Count 6.2 10 Normal 4.0-10.0 [...] 36.0-66.0 Lymph % 25.2 % Normal 24.0-44.0 [place] % 6.9 % Normal 2.0-8.0 Eos % 1.8 % Normal 0.0-3.0 Baso % 0.8 % Normal 0.0-1.0 Immature Granulocyte % 0.3 % Normal 0-3.0 Nucleated Red Blood Cell % 0.0 % Normal 0-0 Neutrophils # 4.1 10 Normal 1.5-8.5 Lymph # 1.6 10 Normal 1.5-5.0 [place] # 0.4 10 Normal 0.0-0.8 Eos # 0.1 10 Normal 0.0-0.5 Baso # 0.1 10 Normal 0.0-0.2 Inhouse Ua 09/16/2020 Inhouse Inhouse Leukocytes ++ Inhouse Nitrite neg Inhouse Urobilinogen neg Inhouse Protein neg Inhouse PH 5 Inhouse Hemoglobin +++ Inhouse Specific [place] 1.005 Inhouse Ketones neg Inhouse Bilirubin neg Inhouse Glucose neg Laboratory test finding 09/16/[address] [id number] [phone] Urine Culture FULL REPORT IN L <SEE NOTE> Normal 1 1 FULL REPORT IN LAB NOTES ( W and [employer]). ORGANISM 1: ESCHERICHIA COLI [...] S Procedures Date Code Description Status 09/16/2020 83023 Office/Outpatient Established Mo d MDM 30-39 Min Completed 11/23/2015 [id number] Mammogram Completed Medical Devices Description No Information Available Encounters Type Date Location Provider Dx Diagnosis Office Visit 09/16/2020 4:00p [facility] ANGELA Simon N39.0 Urinary tract infection, sit e not specified J06.9 Acute upper respiratory infe ction, unspecified Assessments Date Code Description Provider 09/16/2020 N39.0 Urinary tract infection, site no t specified ANGELA Simon 09/16/2020 J06.9 Acute upper respiratory infectio n, unspecified ANGELA Simon Plan of Treatment Future Appointment(s):* 10/29/2020 8:40 am - Miley Mayes D.O. at [facility] Functional Status Description No Information Available Mental Status Description No Information Available Referrals Description No Information Available
--- OUTSIDE RECORDS SUMMARY | 2020-11-17 14:33 | CCD | Continuity of Care Document ---
Author Author Kinsey FRANK PA Organization Unknown Address [place] [address] Phone [phone] Care Team Providers Care Animal Husbandry Worker Name Role Phone Miley Mayes D.O. AUTM [phone] [facility] AUTM [phone] Problems Active Problems Provider Date Moderate recurrent [...] Consumes 2 glasses of wine per w [place] Tobacco Use Start: Unknown Patient has never [...] Suspe nsion Shake Liquid And Use 1 [place] In Each Nostril Twice Daily 51units Miley Mayes D.O. 08/03/2015 Zyrtec Allergy 10mg Tablets 1 by mouth every night 90tabs J30.2 Sari JaimesO. 02/25 Bupropion HCL ER (SR) 200mg Tablets ER 12HR 1 by mouth twice daily Unknown Clonazepam 0.5mg Tablets take one tablet by mouth twice a day. #[id number] Unknown Desvenlafaxine ER 100mg Tablets ER 24HR [...] CPT Code Status Date Vaccine Lot # [id number] Given 2019 Tetanus, Diphthe shad Toxoids/Acellular Pertussis Vaccine 7 Or > [id number] U-Flu Given 11/18/2018 Influenza,Unspecified U-Flu Given 12/13/2017 Influenza,Unspecified Vital Signs Date Vital Result Comment 09/16/2020 4:19pm BP Systolic 140 mmHg BP Diastolic 80 mmHg Height 65.8 inches 5'5.80" Heart Rate 99 /min Respiratory Rate 14 /min Body Temperature 99.0 F O2 % BldC Oximetry 99 % [place] Body Weight 125 lb 10/30/2019 1:46pm BP Systolic 128 mmHg BP Diastolic 78 mmHg Height 65.8 inches 5'5.80" Weight 180.38 lb BMI (Body Mass Index) 29.3 kg/m2 Heart Rate 106 /min Respiratory Rate 18 /min Body Temperature 98.8 F O2 % BldC Oximetry 99 % [place] Body Weight 125 lb Results Test Acquired Date Facility Test Result H/L Range Note Inhouse Ua 09/16/2020 Inhouse Inhouse Leukocytes ++ Inhouse Nitrite neg Inhouse Urobilinogen neg Inhouse Protein neg Inhouse PH 5 Inhouse Hemoglobin +++ Inhouse Specific [place] 1.005 Inhouse Ketones neg Inhouse Bilirubin neg Inhouse Glucose neg Procedures Date Code Description Status 09/16/2020 11030 Office/Outpatient Established Mo d MDM 30-39 Min Completed 11/23/2015 [id number] Mammogram Completed Medical Devices Description No Information Available Encounters Type Date Location Provider Dx Diagnosis Office Visit 09/16/2020 4:00p [facility] ANGELA Simon N39.0 Urinary tract infection, sit e not specified J06.9 Acute upper respiratory infe ction, unspecified Assessments Date Code Description Provider 09/16/2020 N39.0 Urinary tract infection, site no t specified ANGELA Simon 09/16/2020 J06.9 Acute upper respiratory infectio n, unspecified ANGELA Simon Plan of Treatment Future Appointment(s):* 10/29/2020 8:40 am - Miley Mayes D.O. at [facility] Functional Status Description No Information Available Mental Status Description No Information Available Referrals Description No Information Available
--- OUTSIDE RECORDS SUMMARY | 2020-11-17 14:33 | CCD | Continuity of Care Document ---
Author Author Kinsey MAYES D.O. Organization Unknown Address [address] [place] [address] Phone [phone] Care Team Providers Care Tank Setter Name Role Phone Miley Mayes D.O. AUTM [phone] [facility] AUTM [phone] Problems Active Problems Provider Date Moderate recurrent major depression Sari Jamies Onset: 02/25/2015 Generalized anxiety disorder Miley Mayes [...] Consumes 2 glasses of wine per w [place] Tobacco Use Start: Unknown Patient has never [...] Suspe nsion Shake Liquid And Use 1 [place] In Each Nostril Twice Daily 51units Miley Mayes D.O. 08/03/2015 Zyrtec Allergy 10mg Tablets 1 by mouth every night 90tabs J30.2 Sari JaimesO. 02/25 Bupropion HCL ER (SR) 200mg Tablets ER 12HR 1 by mouth twice daily Unknown Clonazepam 0.5mg Tablets take one tablet by mouth twice a day. #[id number] Unknown Desvenlafaxine ER 100mg Tablets ER 24HR [...] CPT Code Status Date Vaccine Lot # [id number] Given 2019 Tetanus, Diphthe shad Toxoids/Acellular Pertussis Vaccine 7 Or > [id number] U-Flu Given 11/18/2018 Influenza,Unspecified U-Flu Given 12/13/2017 Influenza,Unspecified Vital Signs Date Vital Result Comment 09/16/2020 4:19pm BP Systolic 140 mmHg BP Diastolic 80 mmHg Height 65.8 inches 5'5.80" Heart Rate 99 /min Respiratory Rate 14 /min Body Temperature 99.0 F O2 % BldC Oximetry 99 % [place] Body Weight 125 lb 10/30/2019 1:46pm BP Systolic 128 mmHg BP Diastolic 78 mmHg Height 65.8 inches 5'5.80" Weight 180.38 lb BMI (Body Mass Index) 29.3 kg/m2 Heart Rate 106 /min Respiratory Rate 18 /min Body Temperature 98.8 F O2 % BldC Oximetry 99 % [place] Body Weight 125 lb Results Test Acquired Date Facility Test Result H/L Range Note Comprehensive Metabolic Profil 10/19/[address] [address] [phone] Glucose, Fasting 107 mg/dL High 70-100 Blood [...] Ratio 1.0 Low 1.2-2.2 FT4&TSH Panel 10/19/[address] [address] [phone] Thyroid Stimulating Hormone 1.940 uIU/ML Normal 0. 358-3.740 Free T4 0.84 ng/dL Normal 0.76-1.46 CBC With Differential 10/19/[address] [address] [phone] White Blood Count 6.2 10 Normal 4.0-10.0 [...] 36.0-66.0 Lymph % 25.2 % Normal 24.0-44.0 [place] % 6.9 % Normal 2.0-8.0 Eos % 1.8 % Normal 0.0-3.0 Baso % 0.8 % Normal 0.0-1.0 Immature Granulocyte % 0.3 % Normal 0-3.0 Nucleated Red Blood Cell % 0.0 % Normal 0-0 Neutrophils # 4.1 10 Normal 1.5-8.5 Lymph # 1.6 10 Normal 1.5-5.0 [place] # 0.4 10 Normal 0.0-0.8 Eos # 0.1 10 Normal 0.0-0.5 Baso # 0.1 10 Normal 0.0-0.2 Lipid Panel 10/19/[address] [facility] [address] [place] [address] [phone] Triglycerides Level 103 mg/dL Normal <150 Cholesterol Level 231 mg/dL High <200 HDL Cholesterol 55 mg/dL Normal >40 LDL Cholesterol 155 mg/dL High <100 Non-HDL-C 176 mg/dL Normal Cholesterol Risk Ratio 4.200 Normal <5 Inhouse Ua 09/16/2020 Inhouse Inhouse Leukocytes ++ Inhouse Nitrite neg Inhouse Urobilinogen neg Inhouse Protein neg Inhouse PH 5 Inhouse Hemoglobin +++ Inhouse Specific [place] 1.005 Inhouse Ketones neg Inhouse Bilirubin neg Inhouse Glucose neg Laboratory test finding 09/16/2020 [place] [id number] [phone] Urine Culture FULL REPORT IN L <SEE NOTE> Normal 2 1 Units are mL/min/1.73 m2 Chronic Kidney Disease Staging per NKF: Stage I & II GFR >=60 Normal to Mildly Decreased Stage III GFR 30-59 Moderately Decreased Stage IV GFR 15-29 Severely Decreased Stage V GFR <15 Very Little GFR Left ESRD GFR <15 on ENTERER 2 FULL REPORT IN LAB NOTES (eC [...] S Procedures Date Code Description Status 09/16/2020 19003 Office/Outpatient Established Mo d MDM 30-39 Min Completed 11/23/2015 [id number] Mammogram Completed Medical Devices Description No Information Available Encounters Type Date Location Provider Dx Diagnosis Office Visit 09/16/2020 4:00p [facility] ANGELA Simon N39.0 Urinary tract infection, sit e not specified J06.9 Acute upper respiratory infe ction, unspecified Assessments Date Code Description Provider 09/16/2020 N39.0 Urinary tract infection, site no t specified ANGELA Simon 09/16/2020 J06.9 Acute upper respiratory infectio n, unspecified ANGELA Simon Plan of Treatment Future Appointment(s):* 10/29/2020 8:40 am - Miley Mayes D.O. at [facility] Functional Status Description No Information Available Mental Status Description No Information Available Referrals Description No Information Available
--- OUTSIDE RECORDS SUMMARY | 2020-11-17 14:34 | CCD ---
Author Author [facility] Organization [facility] Address Unknown Phone Unavailable Care Team Providers Care Dynamometer Repairer Name Role Phone CARSON, Nathaly MILLER Unavailable Unavailable LETTIERE, Nathaly BOWIE PA Unavailable Unavailable LETTIERE, Nathaly BOWIE PA Unavailable Unavailable LETTIERE, Nathaly BOWIE PA Unavailable Unavailable LETTIERE, Nathaly BOWIE PA Unavailable Unavailable LETTIERE, Nathaly BOWIE PA Unavailable Unavailable LETTIERE, Nathaly BOWIE PA Unavailable Unavailable LETTIERE, Nathaly BOWIE PA Unavailable Unavailable LETTIERE, Nathaly BOWIE PA Unavailable Unavailable LETTIERE, Nathaly BOWIE PA Unavailable Unavailable LETTIERE, Nathaly BOWIE PA Unavailable Unavailable LETTIERE, Nathaly BOWIE PA Unavailable Unavailable LETTIERE, Nathaly BOWIE PA Unavailable Unavailable LETTIERE, Nathaly BOWIE PA Unavailable Unavailable LETTIERE, Nathaly BOWIE PA Unavailable Unavailable LETTIERE, Nathaly BOWIE PA Unavailable Unavailable LETTIERE, Nathaly BOWIE PA Unavailable Unavailable LETTIERE, Nathaly BOWIE PA Unavailable Unavailable LETTIERE, Nathaly BOWIE PA Unavailable Unavailable LETTIERE, Nathaly BOWIE PA Unavailable Unavailable LETTIERE, Nathaly BOWIE PA Unavailable Unavailable LETTIERE, Nathaly BOWIE PA Unavailable Unavailable LETTIERE, Nathaly BOWIE PA Unavailable Unavailable LETTIERE, Nathaly BOWIE PA Unavailable Unavailable LETTIERE, Nathaly BOWIE PA Unavailable Unavailable LETTIERE, Nathaly BOWIE PA Unavailable Unavailable LETTIERE, Nathaly BOWIE PA Unavailable Unavailable LETTIERE, Nathaly BOWIE PA Unavailable Unavailable LETTIERE, Nathaly BOWIE PA Unavailable Unavailable LETTIERE, Nathaly BOWIE PA Unavailable Unavailable LETTIERE, Nathaly BOWIE PA Unavailable Unavailable Smart MD, Filipe L Unavailable Smart MD, Filipe L Unavailable Smart MD, Filipe L Unavailable Smart MD, Filipe L Unavailable Smart MD, Filipe L Unavailable Smart MD, Filipe L Unavailable Smart MD, Filipe L Unavailable Smart MD, Filipe L Unavailable Smart MD, Filipe L Unavailable Smart MD, Filipe L Unavailable Smart MD, Filipe L Unavailable Smart MD, Filipe L Unavailable Smart MD, Filipe L Unavailable Smart MD, Filipe L Unavailable Smart MD, Filipe L Unavailable Smart MD, Filipe L Unavailable Smart MD, Filipe L Unavailable Smart MD, Filipe L Unavailable Smart MD, Filipe L Unavailable Smart MD, Filipe L Unavailable Smart MD, Filipe L Unavailable Smart MD, Filipe L Unavailable Smart MD, Filipe L Unavailable Smart MD, Filipe L Unavailable Smart MD, Filipe L Unavailable Smart MD, Filipe L Unavailable Smart MD, Filipe L Unavailable Smart MD, Filipe L Unavailable Smart MD, Filipe L Unavailable Smart MD, Filipe L Unavailable Smart MD, Filipe L Unavailable Smart MD, Filipe L Unavailable Smart MD, Filipe L Unavailable Smart MD, Filipe L Unavailable Smart MD, Filipe L Unavailable Smart MD, Filipe L Unavailable Smart MD, Filipe L Unavailable Smart MD, Filipe L Unavailable Smart MD, Filipe L Unavailable Smart MD, Filipe L Unavailable Smart MD, Filipe L Unavailable Smart MD, Filipe L Unavailable Smart MD, Filipe L Unavailable Smart MD, Filipe L Unavailable Smart MD, Filipe L Unavailable Smart MD, Filipe L Unavailable Smart MD, Filipe L Unavailable Smart MD, Filipe L Unavailable Smart MD, Filipe L Unavailable Smart MD, Filipe L Unavailable Smart MD, Filipe L Unavailable Smart MD, Filipe L Unavailable Smart MD, Filipe L Unavailable Smart MD, Filipe L Unavailable Smart MD, Filipe L Unavailable ANNABELLE-SYLVIA, BRITTANY DO Unavailable Unavailable ANNABELLE-SYLVIA, BRITTANY DO Unavailable Unavailable ANNABELLE-SYLVIA, BRITTANY DO Unavailable Unavailable ANNABELLE-SYLVIA, BRITTANY DO Unavailable Unavailable ANNABELLE-SYLVIA, BRITTANY DO Unavailable Unavailable ANNABELLE-SYLVIA, BRITTANY DO Unavailable Unavailable ANNABELLE-SYLVIA, BRITTANY DO Unavailable Unavailable ANNABELLE-SYLVIA, BRITTANY DO Unavailable Unavailable ANNABELLE-SYLVIA, BRITTANY DO Unavailable Unavailable ANNABELLE-SYLVIA, BRITTANY DO Unavailable Unavailable ANNABELLE-SYLVIA, BRITTANY DO Unavailable Unavailable ANNABELLE-SYLVIA, BRITTANY DO Unavailable Unavailable ANNABELLE-SYLVIA, BRITTANY DO Unavailable Unavailable ANNABELLE-SYLVIA, BRITTANY DO Unavailable Unavailable ANNABELLE-SYLVIA, BRITTANY DO Unavailable Unavailable ANNABELLE-SYLVIA, BRITTANY DO Unavailable Unavailable ANNABELLE-SYLVIA, BRITTANY DO Unavailable Unavailable ANNABELLE-SYLVIA, BRITTANY DO Unavailable Unavailable ANNABELLE-SYLVIA, BRITTANY DO Unavailable Unavailable ANNABELLE-SYLVIA, BRITTANY DO Unavailable Unavailable ANNABELLE-SYLVIA, BRITTANY DO Unavailable Unavailable ANNABELLE-SYLVIA, BRITTANY DO Unavailable Unavailable ANNABELLE-SYLVIA, BRITTANY DO Unavailable Unavailable ANNABELLE-SYLVIA, BRITTANY DO Unavailable Unavailable ANNABELLE-SYLVIA, BRITTANY DO Unavailable Unavailable ANNABELLE-SYLVIA, BRITTANY DO Unavailable Unavailable ANNABELLE-SYLVIA, BRITTANY DO Unavailable Unavailable ANNABELLE-SYLVIA, BRITTANY DO Unavailable Unavailable ANNABELLE-SYLVIA, BRITTANY DO Unavailable Unavailable ANNABELLE-SYLVIA, BRITTANY DO Unavailable Unavailable ANNABELLE-SYLVIA, BRITTANY DO Unavailable Unavailable ANNABELLE-SYLVIA, BRITTANY DO Unavailable Unavailable ANNABELLE-SYLVIA, BRITTANY DO Unavailable Unavailable ANNABELLE-SYLVIA, BRITTANY DO Unavailable Unavailable ANNABELLE-SYLVIA, BRITTANY DO Unavailable Unavailable ANNABELLE-SYLVIA, BRITTANY DO Unavailable Unavailable ANNABELLE-SYLVIA, BRITTANY DO Unavailable Unavailable ANNABELLE-SYLVIA, BRITTANY DO Unavailable Unavailable ANNABELLE-SYLVIA, BRITTANY DO Unavailable Unavailable ANNABELLE-SYLVIA, BRITTANY DO Unavailable Unavailable ANNABELLE-SYLVIA, BRITTANY DO Unavailable Unavailable ANNABELLE-SYLVIA, BRITTANY DO Unavailable Unavailable ANNABELLE-SYLVIA, BRITTANY DO Unavailable Unavailable ANNABELLE-SYLVIA, BRITTANY DO Unavailable Unavailable ANNABELLE-SYLVIA, BRITTANY DO Unavailable Unavailable ANNABELLE-SYLVIA, BRITTANY DO Unavailable Unavailable ANNABELLE-SYLVIA, BRITTANY DO Unavailable Unavailable ANNABELLE-SYLVIA, BRITTANY DO Unavailable Unavailable ANNABELLE-SYLVIA, BRITTANY DO Unavailable Unavailable ANNABELLE-SYLVIA, BRITTANY DO Unavailable Unavailable ANNABELLE-SYLVIA, BRITTANY DO Unavailable Unavailable ANNABELLE-SYLVIA, BRITTANY DO Unavailable Unavailable ANNABELLE-SYLVIA, BRITTANY DO Unavailable Unavailable ANNABELLE-SYLVIA, BRITTANY DO Unavailable Unavailable ANNABELLE-SYLVIA, BRITTANY DO Unavailable Unavailable ANNABELLE-SYLVIA, BRITTANY DO Unavailable Unavailable ANNABELLE-SYLVIA, BRITTANY DO Unavailable Unavailable ANNABELLE-SYLVIA, BRITTANY DO Unavailable Unavailable ANNABELLE-SYLVIA, BRITTANY DO Unavailable Unavailable ANNABELLE-SYLVIA, BRITTANY DO Unavailable Unavailable ANNABELLE-SYLVIA, BRITTANY DO Unavailable Unavailable ANNABELLE-SYLVIA, BRITTANY DO Unavailable Unavailable ANNABELLE-SYLVIA, BRITTANY DO Unavailable Unavailable ANNABELLE-SYLVIA, BRITTANY DO Unavailable Unavailable ANNABELLE-SYLVIA, BRITTANY DO Unavailable Unavailable ANNABELLE-SYLVIA, BRITTANY DO Unavailable Unavailable ANNABELLE-SYLVIA, BRITTANY DO Unavailable Unavailable ANNABELLE-SYLVIA, BRITTANY DO Unavailable Unavailable ANNABELLE-SYLVIA, BRITTANY DO Unavailable Unavailable ANNABELLE-SYLVIA, BRITTANY DO Unavailable Unavailable ANNABELLE-SYLVIA, BRITTANY DO Unavailable Unavailable ANNABELLE-SYLVIA, BRITTANY DO Unavailable Unavailable ANNABELLE-SYLVIA, BRITTANY DO Unavailable Unavailable ANNABELLE-SYLVIA, BRITTANY DO Unavailable Unavailable ANNABELLE-SYLVIA, BRITTANY DO Unavailable Unavailable ANNABELLE-SYLVIA, BRITTANY DO Unavailable Unavailable ANNABELLE-SYLVIA, BRITTANY DO Unavailable Unavailable ANNABELLE-SYLVIA, BRITTANY DO Unavailable Unavailable ANNABELLE-SYLVIA, BRITTANY DO Unavailable Unavailable ANNABELLE-SYLVIA, BRITTANY DO Unavailable Unavailable ANNABELLE-SYLVIA, BRITTANY DO Unavailable Unavailable ANNABELLE-SYLVIA, BRITTANY DO Unavailable Unavailable ANNABELLE-SYLVIA, BRITTANY DO Unavailable Unavailable ANNABELLE-SYLVIA, BRITTANY DO Unavailable Unavailable VanArnam JR, W Stone PA Unavailable Unavailable VanArnam JR, W Stone PA Unavailable Unavailable VanArnam JR, W Stone PA Unavailable Unavailable VanArnam JR, W Stone PA Unavailable Unavailable VanArnam JR, W Stone PA Unavailable Unavailable VanArnam JR, W Stone PA Unavailable Unavailable VanArnam JR, W Stone PA Unavailable Unavailable VanArnam JR, W Stone PA Unavailable Unavailable VanArnam JR, W Stone PA Unavailable Unavailable VanArnam JR, W Stone PA Unavailable Unavailable VanArnam JR, W Stone PA Unavailable Unavailable VanArnam JR, W Stone PA Unavailable Unavailable VanArnam JR, W Stone PA Unavailable Unavailable VanArnam JR, W Stone PA Unavailable Unavailable VanArnam JR, W Stone PA Unavailable Unavailable VanArnam JR, W Stone PA Unavailable Unavailable VanArnam JR, W Stone PA Unavailable Unavailable VanArnam JR, W Stone PA Unavailable Unavailable VanArnam JR, W Stone PA Unavailable Unavailable VanArnam JR, W Stone PA Unavailable Unavailable VanArnam JR, W Stone PA Unavailable Unavailable VanArnam JR, W Stone PA Unavailable Unavailable VanArnam JR, W Stone PA Unavailable Unavailable VanArnam JR, W Stone PA Unavailable Unavailable VanArnam JR, W Stone PA Unavailable Unavailable VanArnam JR, W Stone PA Unavailable Unavailable VanArnam JR, W Stone PA Unavailable Unavailable VanArnam JR, W Stone PA Unavailable Unavailable VanArnam JR, W Stone PA Unavailable Unavailable VanArnam JR, W Stone PA Unavailable Unavailable VanArnam JR, W Stone PA Unavailable Unavailable VanArnam JR, W Stone PA Unavailable Unavailable VanArnam JR, W Stone PA Unavailable Unavailable VanArnam JR, W Stone PA Unavailable Unavailable VanArnam JR, W Stone PA Unavailable Unavailable VanArnam JR, W Stone PA Unavailable Unavailable VanArnam JR, W Stone PA Unavailable Unavailable VanArnam JR, W Stone PA Unavailable Unavailable VanArnam JR, W Stone PA Unavailable Unavailable VanArnam JR, W Stone PA Unavailable Unavailable VanArnam JR, W Stone PA Unavailable Unavailable VanArnam JR, W Stone PA Unavailable Unavailable VanArnam JR, W Stone PA Unavailable Unavailable GRAHAM, KELVIN Unavailable Unavailable GRAHAM, KELVIN Unavailable Unavailable GRAHAM, KELVIN Unavailable Unavailable GRAHAM, KELVIN Unavailable Unavailable GRAHAM, KLEVIN Unavailable Unavailable GRAHAM, KELVIN Unavailable Unavailable GRAHAM, KELVIN Unavailable Unavailable GRAHAM, KELVIN Unavailable Unavailable GRAHAM, KELVIN Unavailable Unavailable GRAHAM, KELVIN Unavailable Unavailable O'christopher, A Jamir PA Unavailable Unavailable O'christopher, A Jamir PA Unavailable Unavailable O'christopher, A Jamir PA Unavailable Unavailable O'christopher, A Jamir PA Unavailable Unavailable O'christopher, A Jamir PA Unavailable Unavailable O'christopher, A Jamir PA Unavailable Unavailable O'christopher, A Jamir PA Unavailable Unavailable O'christopher, A Jamir PA Unavailable Unavailable O'christopher, A Jamir PA Unavailable Unavailable O'christopher, A Jamir PA Unavailable Unavailable O'christopher, A Jamir PA Unavailable Unavailable O'christopher, A Jamir PA Unavailable Unavailable O'christopher, A Jamir PA Unavailable Unavailable O'christopher, A Jamir PA Unavailable Unavailable O'christopher, A Jamir PA Unavailable Unavailable O'christopher, A Jamir PA Unavailable Unavailable O'christopher, A Jamir PA Unavailable Unavailable O'christopher, A Jamir PA Unavailable Unavailable O'christopher, A Jamir PA Unavailable Unavailable O'christopher, A Jamir PA Unavailable Unavailable O'christopher, A Jamir PA Unavailable Unavailable O'christopher, A Jamir PA Unavailable Unavailable O'christopher, A Jamir PA Unavailable Unavailable O'christopehr, A Jamir PA Unavailable Unavailable O'christopher, A Jamir PA Unavailable Unavailable O'christopher, A Jamir PA Unavailable Unavailable O'christopher, A Jamir PA Unavailable Unavailable O'christopher, A Jamir PA Unavailable Unavailable O'christopher, A Jamir PA Unavailable Unavailable O'christopher, A Jamir PA Unavailable Unavailable O'christopher, A Jamir PA Unavailable Unavailable O'christopher, A Jamir PA Unavailable Unavailable O'christopher, A Jamir PA Unavailable Unavailable Lake Vasquez MD Unavailable Unavailable Lake Vasquez MD Unavailable Unavailable Lake Vasquez MD Unavailable Unavailable Lake Vasquez MD Unavailable Unavailable Lake Vasquez MD Unavailable Unavailable Lake Vasquez MD Unavailable Unavailable Lake Vasquez MD Unavailable Unavailable Lake Vasquez MD Unavailable Unavailable Lake Vasquez MD Unavailable Unavailable Lkae Vasquez MD Unavailable Unavailable Lake Vasquez MD Unavailable Unavailable Lake Vasquez MD Unavailable Unavailable Lake Vasquez MD Unavailable Unavailable Lake Vasquez MD Unavailable Unavailable Lake Vasquez MD Unavailable Unavailable Lake Vasquez MD Unavailable Unavailable Lake Vasquez MD Unavailable Unavailable Lake Vasquez MD Unavailable Unavailable Lake Vasquez MD Unavailable Unavailable Lake Vasquez MD Unavailable Unavailable Lake Vasquez MD Unavailable Unavailable Lake Vasquez MD Unavailable Unavailable Lake Vasquez MD Unavailable Unavailable Jonathan Vasqueznetgiselle MCCORMACK Unavailable Unavailable Jonathan Vasqueznetgiselle MCCORMACK Unavailable Unavailable Lake Vasquez MD Unavailable Unavailable Lake Vasquez MD Unavailable Unavailable Lake Vasquez MD Unavailable Unavailable Lake Vasquez MD Unavailable Unavailable Lake Vasquez MD Unavailable Unavailable Lake Vasquez MD Unavailable Unavailable Lake Vasquez MD Unavailable Unavailable Lake Vasquez MD Unavailable Unavailable Lake Vasquez MD Unavailable Unavailable Lake Vasquez MD Unavailable Unavailable Lake Vasquez MD Unavailable Unavailable Lake Vasquez MD Unavailable Unavailable ANNABELLE-SYLVIA, BRITTANY DO Unavailable Unavailable ANNABELLE-SYLVIA, BRITTANY DO Unavailable Unavailable ANNABELLE-SYLVIA, BRITTANY DO Unavailable Unavailable ANNABELLE-SYLVIA, BRITTANY DO Unavailable Unavailable ANNABELLE-SYLVIA, BRITTANY DO Unavailable Unavailable ANNABELLE-SYLVIA, BRITTANY DO Unavailable Unavailable ANNABELLE-SYLVIA, BIRTTANY DO Unavailable Unavailable ANNABELLE-SYLVIA, BRITTANY DO Unavailable Unavailable ANNABELLE-SYLVIA, BRITTNAY DO Unavailable Unavailable ANNABELLE-SYLVIA, BRITTANY DO Unavailable Unavailable ANNABELLE-SYLVIA, BRITTANY DO Unavailable Unavailable ANNABELLE-SYLVIA, BRITTANY DO Unavailable Unavailable ANNABELLE-SYLVIA, BRITTANY DO Unavailable Unavailable ANNABELLE-SYLVIA, BRITTANY DO Unavailable Unavailable ANNABELLE-SYLVIA, BRITTANY DO Unavailable Unavailable ANNABELLE-SYLVIA, BRITTANY DO Unavailable Unavailable ANNABELLE-SYLVIA, BRITTANY DO Unavailable Unavailable ANNABELLE-SYLVIA, BRITTANY DO Unavailable Unavailable ANNABELLE-SYLVIA, BRITTANY DO Unavailable Unavailable ANNABELLE-SYLVIA, BRITTANY DO Unavailable Unavailable ANNABELLE-SYLVIA, BRITTANY DO Unavailable Unavailable ANNABELLE-SYLVIA, BRITTANY DO Unavailable Unavailable ANNABELLE-SYLVIA, BRITTANY DO Unavailable Unavailable ANNABELLE-SYLVIA, BRITTANY DO Unavailable Unavailable ANNABELLE-SYLVIA, BRITTANY DO Unavailable Unavailable ANNABELLE-SYLVIA, BRITTANY DO Unavailable Unavailable ANNABELLE-SYLVIA, BRITTANY DO Unavailable Unavailable ANNABELLE-SYLVIA, BRITTANY DO Unavailable Unavailable ANNABELLE-SYLVIA, BRITTANY DO Unavailable Unavailable ANNABELLE-SYLVIA, BRITTANY DO Unavailable Unavailable ANNABELLE-SYLVIA, BRITTANY DO Unavailable Unavailable ANNABELLE-SYLVIA, BRITTANY DO Unavailable Unavailable ANNABELLE-SYLVIA, BRITTANY DO Unavailable Unavailable ANNABELLE-SYLVIA, BRITTANY DO Unavailable Unavailable ANNABELLE-SYLVIA, BRITTANY DO Unavailable Unavailable ANNABELLE-SYLVIA, BRITTANY DO Unavailable Unavailable ANNABELLE-SYLVIA, BRITTANY DO Unavailable Unavailable ANNABELLE-SYLVIA, BRITTANY DO Unavailable Unavailable ANNABELLE-SYLVIA, BRITTANY DO Unavailable Unavailable ANNABELLE-SYLVIA, BRITTANY DO Unavailable Unavailable ANNABELLE-SYLVIA, BRITTANY DO Unavailable Unavailable ANNABELLE-SYLVIA, BRITTANY DO Unavailable Unavailable ANNABELLE-SYLVIA, BRITTANY DO Unavailable Unavailable ANNABELLE-SYLVIA, BRITTANY DO Unavailable Unavailable ANNABELLE-SYLVIA, BRITTANY DO Unavailable Unavailable ANNABELLE-SYLVIA, BRITTANY DO Unavailable Unavailable ANNABELLE-SYLVAI, BRITTANY DO Unavailable Unavailable ANNABELLE-SYLVIA, BRITTANY DO Unavailable Unavailable ANNABELLE-SYLVIA, BRITTANY DO Unavailable Unavailable ANNABELLE-SYLVIA, BRITTANY DO Unavailable Unavailable ANNABELLE-SYLVIA, BRITTANY DO Unavailable Unavailable ANNABELLE-SYLVIA, BRITTANY DO Unavailable Unavailable ANNABELLE-SYLVIA, BRITTANY DO Unavailable Unavailable ANNABELLE-SYLVIA, BRITTANY DO Unavailable Unavailable ANNABELLE-SYLVIA, BRITTANY DO Unavailable Unavailable ANNABELLE-SYLVIA, BRITTANY DO Unavailable Unavailable ANNABELLE-SYLVIA, BRITTANY DO Unavailable Unavailable ANNABELLE-SYLVIA, BRITTANY DO Unavailable Unavailable ANNABELLE-SYLVIA, BRITTANY DO Unavailable Unavailable ANNABELLE-SYLVIA, BRITTANY DO Unavailable Unavailable ANNABELLE-SYLVIA, BRITTANY DO Unavailable Unavailable ANNABELLE-SYLVIA, BRITTANY DO Unavailable Unavailable ANNABELLE-SYLVIA, BRITTANY DO Unavailable Unavailable ANNABELLE-SYLVIA, BRITTANY DO Unavailable Unavailable ANNABELLE-SYLVIA, BRITTANY DO Unavailable Unavailable ANNABELLE-SYLVIA, BRITTANY DO Unavailable Unavailable ANNABELLE-SYLIVA, BRITTANY DO Unavailable Unavailable ANNABELLE-SYLVIA, BRITTANY DO Unavailable Unavailable ANNABELLE-SYLVIA, BRITTANY DO Unavailable Unavailable ANNABELLE-SYLVIA, BRITTANY DO Unavailable Unavailable ANNABELLE-SYLVIA, BRITTANY DO Unavailable Unavailable ANNABELLE-SYLVIA, BRITTANY DO Unavailable Unavailable ANNABELLE-SYLVIA, BRITTANY DO Unavailable Unavailable ANNABELLE-SYLVIA, BRITTANY DO Unavailable Unavailable ANNABELLE-SYLVIA, BRITTANY DO Unavailable Unavailable ANNABELLE-SYLVIA, BRITTANY DO Unavailable Unavailable ANNABELLE-SYLVIA, BRITTANY DO Unavailable Unavailable ANNABELLE-SYLVIA, BRITTANY DO Unavailable Unavailable ANNABELLE-SYLVIA, BRITTANY DO Unavailable Unavailable ANNABELLE-SYLVIA, BRITTANY DO Unavailable Unavailable ANNABELLE-SYLVIA, BRITTANY DO Unavailable Unavailable ANNABELLE-SYLVIA, BRITTANY DO Unavailable Unavailable ANNABELLE-SYLVIA, BRITTANY DO Unavailable Unavailable ANNABELLE-SYLVIA, BRITTANY DO Unavailable Unavailable Mariano CHAVIRA MD Unavailable Unavailable Mariano CHAVIRA MD Unavailable Unavailable Mariano CHAVIRA MD Unavailable Unavailable Mariano CHAVIRA MD Unavailable Unavailable Mariano CHAVIRA MD Unavailable Unavailable Mariano CHAVIRA MD Unavailable Unavailable Mariano CHAVIRA MD Unavailable Unavailable Mariano CHAVIRA MD Unavailable Unavailable Mariano CHAVIRA MD Unavailable Unavailable Mariano CHAVIRA MD Unavailable Unavailable Mariano CHAVIRA MD Unavailable Unavailable Mariano CHAVIRA MD Unavailable Unavailable Mariano CHAVIRA MD Unavailable Unavailable Mariano CHAVIRA MD Unavailable Unavailable Mariano CHAVIRA MD Unavailable Unavailable Mariano CHAVIRA MD Unavailable Unavailable Mariano CHAVIRA MD Unavailable Unavailable Mariano CHAVIRA MD Unavailable Unavailable Mariano CHAVIRA MD Unavailable Unavailable Mariano CHAVIRA MD Unavailable Unavailable Mariano CHAVIRA MD Unavailable Unavailable Mariano CHAVIRA MD Unavailable Unavailable Mariano CHAVIRA MD Unavailable Unavailable Mariano CHAVIRA MD Unavailable Unavailable Mariano CHAVIRA MD Unavailable Unavailable Mariano CHAVIRA MD Unavailable Unavailable Mariano CHAVIRA MD Unavailable Unavailable Mariano CHAVIRA MD Unavailable Unavailable Mariano CHAVIRA MD Unavailable Unavailable Mariano CHAVIRA MD Unavailable Unavailable Mariano CHAVIRA MD Unavailable Unavailable Mariano CHAVIRA MD Unavailable Unavailable Mariano CHAVIRA MD Unavailable Unavailable Mariano CHAVIRA MD Unavailable Unavailable Mariano CHAVIRA MD Unavailable Unavailable Mariano CHAVIRA MD Unavailable Unavailable Mariano CHAVIRA MD Unavailable Unavailable Mariano CHAVIRA MD Unavailable Unavailable Mariano CHAVIRA MD Unavailable Unavailable Mariano CHAVIRA MD Unavailable Unavailable Mariano CHAVIRA MD Unavailable Unavailable Mariano CHAVIRA MD Unavailable Unavailable Mariano CHAVIRA MD Unavailable Unavailable Mariano CHAVIRA MD Unavailable Unavailable Mariano CHAVIRA MD Unavailable Unavailable Mariano CHAVIRA MD Unavailable Unavailable Mariano CHAVIRA MD Unavailable Unavailable Mariano CHAVIRA MD Unavailable Unavailable Mariano CHAVIRA MD Unavailable Unavailable Mariano CHAVIRA MD Unavailable Unavailable Mariano CHAVIRA MD Unavailable Unavailable Mariano CHAVIRA MD Unavailable Unavailable FANMariano MD Unavailable Unavailable FANMariano MD Unavailable Unavailable FANMariano MD Unavailable Unavailable FANMariano MD Unavailable Unavailable FANMariano MD Unavailable Unavailable FANMariano MD Unavailable Unavailable FANMariano MD Unavailable Unavailable FANMariano MD Unavailable Unavailable FANMariano MD Unavailable Unavailable FANMariano MD Unavailable Unavailable FANMariano MD Unavailable Unavailable FANMariano MD Unavailable Unavailable FANMariano MD Unavailable Unavailable FANMariano MD Unavailable Unavailable FANMariano MD Unavailable Unavailable FANMariano MD Unavailable Unavailable FANMariano MD Unavailable Unavailable FANMariano MD Unavailable Unavailable FANMariano MD Unavailable Unavailable FANMariano MD Unavailable Unavailable FANMariano MD Unavailable Unavailable FANMariano MD Unavailable Unavailable FANMariano YAP MD Unavailable Unavailable FANMariano YAP MD Unavailable Unavailable FANMariano YAP MD Unavailable Unavailable FANMariano MD Unavailable Unavailable FANMariano MD Unavailable Unavailable FANMariano MD Unavailable Unavailable FANMariano YAP MD Unavailable Unavailable FANMariano YAP MD Unavailable Unavailable FANMariano YAP MD Unavailable Unavailable FANMariano YAP MD Unavailable Unavailable FANMariano MD Unavailable Unavailable FANMariano MD Unavailable Unavailable FANMariano MD Unavailable Unavailable FANMariano YAP MD Unavailable Unavailable FANMariano YAP MD Unavailable Unavailable FANMariano YAP MD Unavailable Unavailable Mariano CHAVIRA MD Unavailable Unavailable FANMariano MD Unavailable Unavailable FANMariano YAP MD Unavailable Unavailable FANMariano MD Unavailable Unavailable Re-disclosure Warning The records that you are about to access may contain information from federally-assisted alcohol or drug abuse programs. If such information is present, then the following federally mandated warning applies: This information has been disclosed to you from records protected by federal confidentiality rules (42 CFR part 2). The federal rules prohibit you from making any further disclosure of this information unless further disclosure is expressly permitted by the written consent of the person to whom it pertains or as otherwise permitted by 42 CFR part 2. A general authorization for the release of medical or other information is NOT sufficient for this purpose. The Federal rules restrict any use of the information to criminally investigate or prosecute any alcohol or drug abuse patient.The records that you are about to access may contain highly sensitive health information, the redisclosure of which is protected by Article 27-F of the [facility] Public Health law. If you continue you may have access to information: Regarding HIV / AIDS; Provided by facilities licensed or operated by the [facility] Office of Mental Health; or Provided by the [facility] Office for People With Developmental Disabilities. If such information is present, then the following [facility] mandated warning applies: This information has been disclosed to you from confidential records which are protected by state law. State law prohibits you from making any further disclosure of this information without the specific written consent of the person to whom it pertains, or as otherwise permitted by law. Any unauthorized further disclosure in violation of state law may result in a fine or correction sentence or both. A general authorization for the release of medical or other information is NOT sufficient authorization for further disc losure. Family History Family Member Name Family Member Gender Family Member Status Date o f Status Description Data Source(s) Unknown Unknown Problem [facility] ([facility]) Unknown Female Problem [facility] ([facility]) Unknown Female Problem [facility] ([facility]) Unknown Female Problem [facility] ([facility]) Unknown Female Problem [facility] ([facility]) Unknown Female Problem [facility] ([facility]) Encounters Encounter Providers Location Date Indications Data Source(s ) Outpatient Attender: BRITTANY LISA DO [facility] 11/16/2020 09:40:00 AM EDT [facility] ([facility]) Outpatient Attender: Jamir MILLER [facility] 09/16/2020 04:00:00 PM EDT [facility] ([facility]) Outpatient Attender: Derek HARLEYeferrer: BRITTANY DONALD DO 09/02/2020 03:08:39 PM EDT [facility] Recurring Patient Attender: CLAUDIO CHAVIRA MDReferrer: LUZ GRAHAM 09/02/2020 08:03:51 AM EDT [facility] Rec[facility]ring Patient Attender: CLAUDIO CHAVIRA MDReferrer: LUZ GRAHAM 07/15/2020 07:57:20 AM EDT [facility] Outpatient Attender: CLAUDIO FAN MDReferrer: BRITTANY GARCIA DO 06/24/2020 11:45:21 AM EDT [facility] Recurring Patient Attender: CLAUDIO DIAZEFANO MDReferrer: LUZ GRAHAM 06/24/2020 11:14:49 AM EDT [facility] Recurring Patient Attender: CLAUDIO FAN MDReferrer: LUZ GRAHAM 04/29/2020 08:14:08 AM EDT [facility] Outpatient Attender: Stone Greenberg JRReferrer: BRITTANY MELISSA DO 01/05/2020 09:12:28 PM EST [facility] Outpatient Attender: [place]/ [facility] 12/26/2019 07:40:00 AM EST [facility] ([facility]) Outpatient Attender: JAMIR huber 12/08/2019 10:15:00 AM EST [facility] ([facility]) Outpatient Attender: Jamir MILLER [facility] 10/30/2019 01:20:00 PM EDT [facility] ([facility]) Outpatient Attender: BRITTANY LISA DO [facility] 2019 08:00:00 AM EDT [facility] ([facility]) Outpatient Attender: Jamir MILLER [facility] 10/17/2019 10:40:00 AM EDT [facility] ([facility]) Outpatient Attender: [place]/ [facility] 09/24/2019 02:40:00 PM EDT [facility] ([facility]) Immunizations Vaccine Date Status Description Data Source(s) COVID-19 VACCINE Pfizer 03/05/2020 12:00:00 AM EST completed [facility] Vaccine Series Complete: YESThis Data wa s Submitted to [facility] Via [facility]. COVID-19 VACCINE Pfizer 02/13/2020 12:00:00 AM EST completed [facility] Vaccine Series Complete: NOThis Data was Submitted to [facility] Via [employer]. Tdap 2019 08:34:00 AM EDT completed [facility] ([facility]) Medications Medication Brand Name Start Date Product Form Dose Route Admi nistrative Instructions Pharmacy Instructions Status Indications Reaction Description Data Source(s) Cephalexin 500 MG Oral Tablet Cephalexin 09/16/2020 12:00:00 AM EDT ORAL completed [facility] ([facility]) Ciprofloxacin 500 MG Oral Tablet Ciprofloxacin HCL 09/16/2020 12:00 :00 AM EDT completed [facility] ([facility]) Ciprofloxacin 500 MG Oral Tablet Cipro 09/16/2020 12:00:00 AM EDT ORAL completed [facility] ([facility]) Immunization Administration Single Or Combination 2019 12:00:00 AM EDT completed [facility] ([facility]) Medication administered onsite Immunization Adminstration 2+ Single Or Combination 2019 12:00:00 AM EDT completed [facility] ([facility]) Medication administered onsite 24 HR mirabegron 50 MG Extended Release Oral Tablet [Myrbetr iq] Myrbetriq 09/24/2019 12:00:00 AM EDT ORAL active [facility] ([facility]) Insurance Providers Payer name Policy type / Coverage type Policy ID Covered alliance party ID Covered alliance party's relationship to desir Policy Desir Plan Information [place] Plan F [id number] SPOUSE [id number] [place] Plan F [id number] SPOUSE [id number] EXCELLUS BCBS [id number] [id number] EXCELLUS BCBS [id number] Spo YLS [id number] EXCELLUS BCBS [id number] Spo [id number] EXCELLUS BCBS [id number] Spo [id number] [facility] [id number] Family Dependent [id number] [employer] [id number] HU2 [id number] [place] Plan Commercial [id number] Family Dependent [id number] [place] Plan Commercial [id number] Family Dependent [id number] [facility] ([facility]) O [id number] P [id number] [place] Plan Commercial [id number] Family Dependent [id number] [place] Plan Commercial [id number] Family Dependent [id number] [employer] Plan Commercial [id number] Family Dependent [id number] [employer] Plan Commercial [id number] Family Dependent [id number] [facility] [place] Commercial [id number] Family Dependent [id number] [employer] Plan Commercial [id number] Family Dependent [id number] SELF PAY ONLY UNAVAILABLE SP UNAV AILABLE [place] Plan Commercial [id number] Family Dependent [employer] [id number] [id number] [facility] [place] Commercial [id number] Family Depende nt STATE INSURANCE FUND [id number] SP [id number] [facility] P [id number] S [id number] OTHER WORKERS COMPENSATION N SP N OTHER WORKERS COMPENSATION [id number] SP [id number] BCBS EMPIRE MAICOL DIV [id number] [id number] [facility] ([facility]) P UNAVAILABLE P UNAVAILABLE [id number] BCBS [place]IRE MAICOL DIV [id number] [facility] [id number] [employer] ([facility]) O [id number] S [id number] [employer] Plan Commercial [id number] Family Dependent [id number] [facility] [employer] Commercial [id number] Family Dependent [id number] Problems, Conditions, and Diagnoses No Information Surgeries/Procedures Procedure Description Date Indications Data Source(s) OFFICE OUTPATIENT VISIT 15 MINUTES 11/16/2020 12:00:00 AM EDT [facility] ([facility]) PERIODIC PREVENTIVE MED EST PATIENT 40-64YRS 12:00:00 AM EDT [facility] ([facility]) OFFICE OUTPATIENT VISIT 25 MINUTES 09/16/2020 12:00:00 AM EDT [facility] ([facility]) NABEEL POST-VOIDING RESIDUAL URINE&/BLDR CAP 12/26/2019 12:00:00 AM EST [facility] ([facility]) Destruction Benign Lesions Other Than Skin Tags Or Cutan Vas cular 10/17/2019 12:00:00 AM EDT [facility] ([facility]) NABEEL POST-VOIDING RESIDUAL URINE&/BLDR CAP 09/24/2019 12:00:00 AM EDT [facility] ([facility]) Results ID Date Data Source [id number] 10/29/2020 12:00:00 AM EDT [facility] Name Value Range Interpretation Code Description Data Rukhsana rce(s) Supporting Document(s) SARS-COV-2 Negative [facility] This lab was ordered by Evert and re ported by Evert. ID Date Data Source [id number] 10/19/2020 02:13:00 PM EDT [facility] ([facility]) Name Value Range Interpretation Code Description Data Rukhsana rce(s) Supporting Document(s) Triglycerides Level 103 mg/dL Normal (applies to non-nume jo ann results) [facility] ([facility]) Cholesterol Level 231 mg/dL Above high normal [facility] ([facility]) Non-HDL-C 176 mg/dL Normal (applies to non-numeric resul ts) [facility] ([facility]) HDL Cholesterol 55 mg/dL Normal (applies to non-numeric results) [facility] ([facility]) LDL Cholesterol 155 mg/dL Above high normal [facility] ([facility]) Cholesterol Risk Ratio 4.200 Normal (applies to non-n umeric results) [facility] ([facility]) ID Date Data Source [id number] 10/19/2020 02:13:00 PM EDT [facility] ([facility]) Name Value Range Interpretation Code Description Data Rukhsana rce(s) Supporting Document(s) White Blood Count 6.2 10 4.0-10.0 Normal (applies to non-numeri c results) [facility] ([facility]) Hemoglobin 13.1 g/dL 12.0-15.5 Normal (applies to non-numeric resul ts) [facility] ([facility]) Hematocrit 40.4 % 36.0-47.0 Normal (applies to non-numeric resul ts) [facility] Red Blood Count 4.48 10 4.00-5.40 Normal (applies to non-numeric results) [facility] Mean Corpuscular Hemoglobin 29.2 pg 27.0-33.0 Norm al (applies to non-numeric results) [facility] ([facility]) Mean Corpuscular Volume 90.2 fl 80.0-96.0 Normal ( applies to non-numeric results) [facility] ([facility]) Mean Corpuscular HGB Conc 32.4 g/dL 32.0-36.5 Normal (applies to non-numeric results) [facility] ([facility]) Neutrophils % 65.0 % 36.0-66.0 Normal (applies to non-numeric re sults) [facility] Red Cell Distribution Width 12.6 % 11.5-14.5 Norm al (applies to non-numeric results) [facility] ([facility]) Platelet Count, Automated 342 10 150-450 Normal (applies to non-numeric results) [facility] ([facility]) Eos % 1.8 % 0.0-3.0 Normal (applies to non-numeric resul ts) [facility] ([facility]) [place] % 6.9 % 2.0-8.0 Normal (applies to non-numeric resul ts) [facility] ([facility]) Lymph % 25.2 % 24.0-44.0 Normal (applies to non-numeric resul ts) [facility] ([facility]) Nucleated Red Blood Cell % 0.0 % 0-0 Normal (applies to n on-numeric results) [facility] ([facility]) Baso % 0.8 % 0.0-1.0 Normal (applies to non-numeric resul ts) [facility] ([facility]) Immature Granulocyte % 0.3 % 0-3.0 Normal (applies to non-n umeric results) [facility] ([facility]) [place] # 0.4 10 0.0-0.8 Normal (applies to non-numeric resul ts) [facility] ([facility]) Neutrophils # 4.1 10 1.5-8.5 Normal (applies to non-numeric re sults) [facility] ([facility]) Lymph # 1.6 10 1.5-5.0 Normal (applies to non-numeric resul ts) [facility] ([facility]) Eos # 0.1 10 0.0-0.5 Normal (applies to non-numeric resul ts) [facility] ([facility]) Baso # 0.1 10 0.0-0.2 Normal (applies to non-numeric resul ts) [facility] ([facility]) ID Date Data Source [id number] 10/19/2020 02:13:00 PM EDT [facility] ([facility]) Name Value Range Interpretation Code Description Data Rukhsana rce(s) Supporting Document(s) Thyroid Stimulating Hormone 1.940 uIU/ML 0.358-3.740 Norm al (applies to non- numeric results) [facility] ([facility]) Free T4 0.84 ng/dL 0.76-1.46 Normal (applies to non-numeric resul ts) [facility] ([facility]) ID Date Data Source [id number] 10/19/2020 02:13:00 PM EDT [facility] ([facility]) Name Value Range Interpretation Code Description Data Rukhsana rce(s) Supporting Document(s) Blood Urea Nitrogen 8 mg/dL 7-18 Normal (applies to non-nume jo ann results) [facility] ([facility]) Glucose, Fasting 107 mg/dL 70-100 Above high normal [facility] ([facility]) Glomerular Filtration Rate Laboratory test result Normal (applies to non- numeric results) [facility] ([facility]) <content>Units are mL/min/1.73 m2</content>
<content></content>
<content>Chronic Kidney Disease Staging per NKF:</content>
<content></content>
<content>Stage I & II GFR >=60 Normal to Mildly Decreased</content>
<content>Stage III GFR 30- 59 Moderately Decreased</content>
<content>Stage IV GFR 15-29 Severely Decreased</content>
<content>Stage V GFR <15 Very Little GFR Left</content>
<content>ESRD GFR <15 on STARCH AND PROSIZE MIXER</content>
<content></content> Creatinine For GFR 0.63 mg/dL 0.55-1.30 Normal (applies to non -numeric results) [facility] ([facility]) Sodium Level 139 meq/L 136-145 Normal (applies to non-numeric res ults) [facility] ([facility]) Chloride Level 106 meq/L 98-107 Normal (applies to non-numeric r esults) [facility] ([facility]) Potassium Serum 4.5 meq/L 3.5-5.1 Normal (applies to non-numeric results) [facility] ([facility]) Calcium Level 9.1 mg/dL 8.5-10.1 Normal (applies to non-numeric re sults) [facility] ([facility]) Ast/Sgot 12 U/L 7-37 Normal (applies to non-numeric resul ts) [facility] ([facility]) Carbon Dioxide Level 28 meq/L 21-32 Normal (applies to non-num cydney results) [facility] ([facility]) Anion Gap 5 meq/L 8-16 Below low normal [facility] ( [facility]) Bilirubin,Total 0.3 mg/dL 0.2-1.0 Normal (applies to non-numeric results) [facility] ([facility]) Alt/SGPT 19 U/L 12-78 Normal (applies to non-numeric resul ts) [facility] ([facility]) Alkaline Phosphatase 75 U/L 45-117 Normal (applies to non-num cydney results) [facility] ([facility]) Total Protein 7.4 GM/DL 6.4-8.2 Normal (applies to non-numeric re sults) [facility] ([facility]) Albumin/Globulin Ratio 1.0 1.2-2.2 Below low normal [facility] ([facility]) Albumin 3.7 GM/DL 3.2-5.2 Normal (applies to non-numeric resul ts) [facility] ([facility]) ID Date Data Source [id number] 09/16/2020 04:51:00 PM EDT [facility] ([facility]) Name Value Range Interpretation Code Description Data Rukhsana rce(s) Supporting Document(s) Inhouse Leukocytes Laboratory test result [facility] ([facility]) Inhouse Urobilinogen Laboratory test result [facility] ([facility]) Inhouse Nitrite Laboratory test result [facility] ([facility]) Inhouse Protein Laboratory test result [facility] ([facility]) Inhouse Hemoglobin Laboratory test result [facility] ([facility]) Inhouse PH 5 [facility] ([facility]) Inhouse Specific [place] 1.005 [facility] ([facility]) Inhouse Glucose Laboratory test result [facility] ([facility]) Inhouse Ketones Laboratory test result [facility] ([facility]) Inhouse Bilirubin Laboratory test result [facility] ([facility]) ID Date Data Source [id number] 09/16/2020 04:35:00 PM EDT [facility] ([facility]) Name Value Range Interpretation Code Description Data Rukhsana rce(s) Supporting Document(s) Bacteria identified in Urine by Culture Laboratory test result Normal (applies to non-numeric results) [facility] ([facility]) <content>FULL REPORT IN LAB NOTES ([facility] a nd [facility]).</content>
<content></content>
<content>ORGANISM 1: ESCHERICHIA COLI</content>
<content></content>
<content>COLONY COUNT >100,000</content>
<content></content>
<content>ORGANISM 2: ENTEROCOCCUS FAECALIS</content>
<content></content>
<content>COLONY COUNT >100,000</content>
<content> </content>
<content></content>
<content>ORGANISM 1: ESCHERICHIA COLI</content>
<content>ORGANISM 2: ENTEROCOCCUS FAECALIS</content>
<content></content>
<content>ESCHERICHIA COLI: REACTION</content>
<content>TRIMETHOPRIM/SULFAMETHOXAZOLE IV 160mg TMP & 800mg SMXq6h <=20 S</content>
<content> TRIMETHOPRIM/SULFAMETHOXAZOLE PO Bactrim DS Bid <=20 S</content>
<content>AMPICILLIN IV 500mg q6h <=2 S</content>
<content>AMPICILLIN PO 500mg q6h fasting <=2 S</content>
<content>GENTAMICIN IV 80mg q8h <=1 S</content>
<content>NITROFURANTOIN PO 100mg BID <=16 S</content>
<content>CEFAZOLIN IV 1gm q8h <=4 S</content>
<content>LEVOFLOXACIN IV 500mg qd <=0.12 S</content>
<content>LEVOFLOXACIN PO 250mg qd <=0.12 S</content>
<content>LEVOFLOXACIN PO 500mg qd <=0.12 S</content>
<content>TOBRAMYCIN IV 80mg q8h <=1 S</content>
<content> CEFTRIAXONE IV 1gm q24h <=1 S</content>
<content>CEFTAZIDIME IV 1gm q8h <=1 S</content>
<content>AMPICILLIN/SULBACTAM IV 1.5g q6h <=2 S</content>
<content>PIPERACILLIN/TAZOBACTAM IV 2.25 gm q6h <=4 S</content>
<content>AZTREONAM IV 1gm q8h <=1 S</content>
<content>ERTAPENEM IV 1gm qd <=0.5 S</content>
<content> MEROPENEM IV 1 gm q8h <=0.25 S</content>
<content>MEROPENEM IV 500 mg q8h <=0.25 S</content>
<content>TIGECYCLINE IV 50mg q12h <=0.5 S</content>
<content>CEFEPIME IV 1 gm q12h <=1 S</content>
<content>CEFEPIME IV 2 gm q12h <=1 S</content>
<content>EXTD BRD SPCTRM BETA LACTAMASE IV NEGATIVE FOR ESBL</content>
<content></content>
<content>ENTEROCOCCUS FAECALIS: REACTION</content>
<content>TETRACYCLINE PO 250 mg qid >=16 R</content>
<content>PENICILLIN G IV 1 mu q6H 4 S</content>
<content>PENICILLIN G IV 1 mu q6h 4 S</content>
<content>PENICILLIN G PO 250mg q6h fasting 4 S</content>
<content>AMPICILLIN IV 500mg q6h <=2 S</content>
<content>AMPICILLIN PO 500mg q6h fasting <=2 S</content>
<content>ERYTHROMYCIN IV 500mg q6h 2 I</content>
<content>ERYTHROMYCIN PO 500mg q6h 2 I</content>
<content>GENTAMICIN 500 IV 80mg q8h S</content>
<content>NITROFURANTOIN PO 100mg BID <=16 S</content>
<content>LEVOFLOXACIN IV 500mg qd 1 S</content>
<content>LEVOFLOXACIN PO 250mg qd 1 S</content>
<content>LEVOFLOXACIN PO 500mg qd 1 S</content>
<content>CIPROFLOXACIN IV 400mg bid 1 S</content>
<content>CIPROFLOXACIN PO 500mg q12h 1 S</content>
<content>VANCOMYCIN IV 500mg q8h 1 S</content>
<content>LINEZOLID (ZYVOX) IV 600MG Q12HR 2 S</content>
<content>LINEZOLID (ZYVOX) PO 600MG Q12HR 2 S</content>
<content></content> ID Date Data Source [id number] 09/02/2020 03:08:39 PM EDT [facility]: Maria Elena VelardeDOB: 1965Provider: Derek GutierrezDODylan: 09/02/2020 Reason For VisitCatherradha Velarde is here today for left shoulder. Patient denies any symptoms of or pending results for COVID 19 or contact with anyone with COVID 19. Maria Elena had her second Covid vaccine on 03/05/20. Maria Elena Velarde is a new patient. States she has had pain in the top of the shoulder which radiates down the arm x 3-4months. She denies any injury. She has been managing with nsaids and has not had physical therapy. The patient was notified that the office visit was recorded to enhance documentation accuracy. (pharmacist ). Patient is working at this time at regular duty. History of Present IllnessCHIEF COMPLAINTEvaluation of left shoulder pain.HISTORY OF PRESENT ILLNESSThe patient is a 54-year-old [id number]-[id number] female who is here for evaluation of left shoulder pain. She has had pain for 3 to 4 months with lifting overhead. The pain is almost snapping in his arm and it radiates down the arm. The patient has had no physical therapy, no injections, and no surgery. The patient states that she took anti-inflammatories for cramps over the past few days, but it did not relieve her shoulder pain. She rates the pain at 5/10. The patient locates the pain in the anterior shoulder and it radiates into the deltoid at times.The patient states that her right shoulder is starting to bother her, but her left shoulder is the worst. She denies any fall or any triggering event. The patient states that the pain in her left shoulder prevents her from doing any overhead activities. She describes it as a sharp pain that goes down her arm, and she states that she feels a click or a pop in the shoulder along with it. She finds it difficult to sleep on the left shoulder. The patient states that it is difficult to reach behind her back occasionally. She also mentions that she has a hard time turning her neck to see things. 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 Results/DataX-rays, 3 views, of the left shoulder were ordered, obtained, and interpreted in the office today; AP, Y, and axillary views. These reveal no glenohumeral joint narrowing. Type II acromion. She does have some AC joint spur and cystic degenerative changes consistent with primary AC joint arthritis. Th ere is no fracture or dislocation. AssessmentASSESSMENTLeft shoulder impingement with subacromial and subdeltoid bursitis. Plan X-Ray I Shoulder - 2 views (XRays were ordered, obtained and interpreted today in theoffice. Indication: pain/dysfunction.); Status:Complete; Done: [id number] Perform:SOS29; Due:[id number]; Last Updated By:Lay Kennedy; 09/02/2020 8:17:37 AM;Ordered; For:Left shoulder pain; Ordered By:Derek Gutierrez;Laterality: : Left PLANCatherine and I discussed her left shoulder. I think it is all inflammation, bursitis, and impingement. I am going to do a subacromial cortisone injection today followed by some physical therapy to get the shoulder working better. I suspect that will do the trick. I will see her back if it does not work. The patient agrees with this plan.I advised the patient that steroid injections are frequently used to provide relief from musculoskeletal pain and to aid in the diagnosis of musculoskeletal problems. This injection offers a variety of benefits and various potential risks associated with the medication administered during the injection. I informed the patient that alternatives to this injection include no treatment, use of rehabilitation and exercise, use of a different medication (oral and injectable), and surgical intervention, when appropriate. I advised the patient that the risks associated with this injection include: an allergic reaction to the medication, pain at the injection site, possible infection of the injection site, facial flushing and skin changes, temporary increase in blood sugar, tendon, muscle or nerve injury, avascular n ecrosis, and that there may actually not be a beneficial effect at all. Having discussed benefits, alternatives, and potential risks to the injection, the patient elected to proceed with the procedure.PROCEDUREIndications: Left shoulder painProcedure: Left shoulder subacromial cortisone injectionDescription: Under sterile conditions, 6 mL of 1% lidocaine and 80 mg of Depo-Medrol were injected in the left shoulder without complication. The patient tolerated the procedure well. There was no injectable waste. Scribed by Jomar Haider on 09/02/2020 at 02:09 PM for Derek Gutierrez Signatures Electronically signed by : Jomar Haider MA; Sep 02 2020 2:09PM EST (Author) Electronically signed by : Derek Gutierrez M.D.; Sep 02 2020 3:08PM EST Name Value Range Interpretation Code Description Data Rukhsana rce(s) Supporting Document(s) ID Date Data Source [id number] 06/24/2020 11:45:21 AM EDT [facility] PCName: Maria Elena VelardeDOB: 1965Provider: Ferny Chavira: 06/24/2020 Reason For VisitCatgallo Chuck is here today for Lumbar spine. Maria Elena had her first Covid vaccine on 02.13.2020. Maria Elena had her second Covid vaccine on 03.05.2020. Maria Elena Velarde is an established patient here for follow up. Patient reports her pain is decreasing. The patient is currently residing at home. Surgery DOS: 03-17-2019. Surgery Description: DIscectomy, spine, lumbar 5 - sacral 1, with laminotomy and fusion interbody/posterolateral, with cage, instrumentation, left iliac crest bone graft, local bone graft.. NKI. 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 History of Present IllnessPatient is seen in follow up from last visit. Overall doing very well from her surgeryOccasional low back pain The patient complains of pain in the lumbar spine . The patient states that the timing of the pain is intermittent . The pain radiates to the right, anterior and thigh(s) . The patient states that the timing of the pain is intermittent . The patient denies signs of bladder dysfunction, bowel dysfunction, cancer/metastasis, infection and myelopathy . The pain is achy . The pain severity is rated 1-3 out of 10. There is no numbness or weakness. Results/DataXRays were ordered, obtained and interpreted today in the office. Indication: pain/dysfunction. Site: Lumbar Spine Views: 2 Views, AP/Lateral Standing Findings:. Good position of implants and healed fusion. [facility] Right L5-S1 disc herniation displacing the right is one nerve rootMRI lumbar [facility] radiology 12/26/18: Right L5-S1 protrusion displacing the right S1 nerve root. Multilevel DDD Assessment 1. Low back pain (724.2) (M54.5) condition: Chronicetiology: age-related spine/joint degenerationlevels: L5-S1 Plan X-Ray I Lumbosacral - 2 views (XRays were ordered, obtained and interpreted today inthe office. In dication: pain/dysfunction.); Status:Complete; Done: 24Jun2020 Perform:SOS22; Due:08Jul2020; Last Updated By:Debra Self; 06/24/2020 11:34:53 AM;Ordered; For:Low back pain; Ordered By:Claudio Chavira; Plan, Assessment and Recommendation(s) Follow up as needed, if not improving, or getting worse. Long discussion reviewing the different treatment conservative options(observation, medication(s), physical therapy, acute care registered nurse, acupuncture, pain clinic, home exercise program, etc.)--- with pros and cons, potential risks/potential benefits of each option, as well as the chances of successes/failures of each option.At this time, they wish to proceed with:Home exercise program This document was dictated and electronically signed using [employer] software. A reasonable attempt at proof reading has been made to minimize errors. Please call with any questions. Signatures Electronically signed by : Claudio Chavira M.D.; Jun 24 2020 11:45AM EST ( Author) Name Value Range Interpretation Code Description Data Rukhsana rce(s) Supporting Document(s) ID Date Data Source [id number] 02/28/2020 12:00:00 AM EST [facility] Name Value Range Interpretation Code Description Data Rukhsana rce(s) Supporting Document(s) SARS-CoV2 Rapid Antigen Negative [facility] This lab was ordered by [facility] and reported by [facility]. ID Date Data Source [id number] 02/20/2020 12:00:00 AM EST [facility] Name Value Range Interpretation Code Description Data Rukhsana rce(s) Supporting Document(s) SARS-CoV2 Rapid Antigen Negative [facility] This lab was ordered by [facility] and reported by [facility]. ID Date Data Source [id number] 01/05/2020 09:12:28 PM EST [facility], PCName: Maria Elena Bartlett: 1965Provider: Vlad Antonio: 12/26/2019 Reason For VisitCatherradha Velarde is an established patient here for follow up. Patient states she did not have MRI's done. She was seen by urologist. The patient is currently residing at home. Surgery DOS: 03-17-2019. Surgery Description: DIscectomy, spine, lumbar 5 - sacral 1, with laminotomy and fusion interbody/posterolateral, with cage, instrumentation, left iliac crest bone graft, local bone graft.. 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 History of Present IllnessPatient is a 54-year-old female presents to the office following lumbar surgery on 03/17/19. Complaining of occasional low back pain. Denies any radicular symptoms. Previous urinary incontinence has resolved. Seen by [facility] urology and diagnosed with an overactive bladder. Results/Data XRays previously taken were reviewed today. Site: Lumbar Spine Views: 2 Views, AP/Lateral Standing Impression: Hardware at L5-S1 in good position. AssessmentLow back pain PlanPlan, Assessment and Recommendation(s) The nature of the diagnosis and various treatment alternatives were discussed today, including invasive, operative, and non-operative options. Patient is status post lumbar laminectomy/fusion on 03/17/19. Clinically doing well. Urine incontinence was urologic in nature. At this time she will continue with home exercises and follow-up in 3 months. Work / School NoteThe patient is working at this time. This document was dictated and electronically signed using [employer] software. A reasonable attempt at proof reading has been made to minimize errors. Please call with any questions. Signatures Electronically signed by : Ara Moseley; Jan 04 2020 8:34PM EST (Author) Electronically signed by : Claudio Chavira M.D.; Jan 05 2020 9:12PM EST Name Value Range Interpretation Code Description Data Rukhsana rce(s) Supporting Document(s) ID Date Data Source [id number] 12/26/2019 08:41:00 AM EST [facility] ([facility] Name Value Range Interpretation Code Description Data Rukhsana rce(s) Supporting Document(s) Protein [Presence] in Urine by Test strip Laboratory test result [facility] ([facility]) Glucose [Presence] in Urine Laboratory test result [facility] ([facility]) Blood [Presence] in Urine by Visual Laboratory test result [facility] ([facility]) Ua Leuko Laboratory test result ME D[facility] ([facility]) Ua Nitrite Laboratory test result [facility] ([facility]) Ketones [Presence] in Urine by Test strip Laboratory test result [facility] ([facility]) Clarity of Urine Laboratory test result [facility] ([facility]) Color of Urine Laboratory test result [facility] ([facility]) pH of Urine by Test strip 6.5 5.0-7.5 [facility] ([facility]) Ua Specific [place] 1.020 1.003-1.030 MEDE NT ([facility]) Bilirubin.total [Presence] in Urine by Test strip Laboratory test res ult [facility] ([facility]) Urobilinogen [Mass/volume] in Urine by Test strip 0.2 E.U./dL 0.0-1.0 [facility] ([facility]) ID Date Data Source [id number] 09/24/2019 02:39:00 PM EDT [facility] ([facility]) Name Value Range Interpretation Code Description Data Rukhsana rce(s) Supporting Document(s) Ua Nitrite Laboratory test result [facility] ([facility]) Glucose [Presence] in Urine Laboratory test result [facility] ([facility]) Protein [Presence] in Urine by Test strip Laboratory test result [facility] ([facility]) Ua Leuko Laboratory test result [facility] ([facility]) Blood [Presence] in Urine by Visual Laboratory test result [facility] ([facility]) Ketones [Presence] in Urine by Test strip Laboratory test result [facility] ([facility]) Color of Urine Laboratory test result [facility] ([facility]) Ua Specific [place] 1.010 1.003-1.030 [facility] NT ([facility]) Clarity of Urine Laboratory test result [facility] ([facility]) pH of Urine by Test strip 6.0 5.0-7.5 [facility] ([facility]) Bilirubin.total [Presence] in Urine by Test strip Laboratory test res ult [facility] ([facility]) Urobilinogen [Mass/volume] in Urine by Test strip 0.2 E.U./dL 0.0-1.0 [facility] ([facility]) Procedure Social History Code Duration Value Status Description Data Source(s ) Smoking 11/16/2020 12:00:00 AM EDT Patient has never smoked co mpleted Patient has never smoked [facility] ([facility]) Smoking 12/26/2019 12:00:00 AM EST Never Smoked Cigarettes com pleted Never Smoked Cigarettes [facility] ([facility]) Smoking 12/08/2019 12:00:00 AM EST Patient has never smoked co mpleted Patient has never smoked [facility] ([facility]) Vital Signs ID Date Data Source UNK Name Value Range Interpretation Code Description Data Source(s) Systolic blood pressure 120 mm[Hg] 120 mm[Hg] M EDENT ([facility]) Body weight 170.00 [lb_av] 170.00 [lb_av] MEDEN T ([facility]) Body temperature 97.8 [degF] 97.8 [degF] [facility] ([facility]) Oxygen saturation in Arterial blood by Pulse oximetry 98 % 98 % [facility] ([facility]) [place] body weight 125 [lb_av] 125 [lb_av] MEDEN T ([facility]) Diastolic blood pressure 78 mm[Hg] 78 mm[Hg] [facility] ([facility]) Body height 65.8 [in_i] 65.8 [in_i] [facility] ([facility]) 5'5.80" Body mass index (BMI) [Ratio] 27.6 kg/m2 27.6 k g/m2 [facility] ([facility]) Heart rate 81 /min 81 /min [facility] ([facility]) Diastolic blood pressure 80 mm[Hg] 80 mm[Hg] [facility] ([facility]) Body height 65.8 [in_i] 65.8 [in_i] [facility] ([facility]) 5'5.80" Heart rate 99 /min 99 /min [facility] ([facility]) Respiratory rate 14 /min 14 /min [facility] ( [facility]) Body temperature 99.0 [degF] 99.0 [degF] [facility] ([facility]) Oxygen saturation in Arterial blood by Pulse oximetry 99 % 99 % [facility] ([facility]) [place] body weight 125 [lb_av] 125 [lb_av] MEDEN T ([facility]) Systolic blood pressure 140 mm[Hg] 140 mm[Hg] M EDENT ([facility]) Systolic blood pressure 136 mm[Hg] 136 mm[Hg] [facility] ([facility]) Diastolic blood pressure 85 mm[Hg] 85 mm[Hg] [facility] ([facility]) Heart rate 78 /min 78 /min [facility]) Systolic blood pressure 142 mm[Hg] 142 mm[Hg] M EDENT ([facility]) Diastolic blood pressure 87 mm[Hg] 87 mm[Hg] [facility] ([facility]) Heart rate 92 /min 92 /min [facility] ([facility]) Respiratory rate 16 /min 16 /min [facility] ( [facility]) Oxygen saturation in Arterial blood by Pulse oximetry 97 % 97 % [facility] ([facility], [facility]) Body temperature 98.0 [degF] 98.0 [degF] [facility] ([facility], [facility]) Body weight 175.00 [lb_av] 175.00 [lb_av] MEDEN T ([facility], [facility]) Body height 66 [in_i] 66 [in_i] [facility] ([facility], [facility]) 5'6" Body mass index (BMI) [Ratio] 28.2 kg/m2 28.2 k g/m2 [facility] ([facility]) Diastolic blood pressure 78 mm[Hg] 78 mm[Hg] [facility] ([facility]) Body mass index (BMI) [Ratio] 29.3 kg/m2 29.3 k g/m2 [facility] ([facility]) Heart rate 106 /min 106 /min [facility] ([facility]) Body temperature 98.8 [degF] 98.8 [degF] [facility] ([facility]) Oxygen saturation in Arterial blood by Pulse oximetry 99 % 99 % [facility] ([facility]) [place] body weight 125 [lb_av] 125 [lb_av] MEDEN T ([facility]) Respiratory rate 18 /min 18 /min [facility] ( [facility]) Systolic blood pressure 128 mm[Hg] 128 mm[Hg] M EDENT ([facility]) Body height 65.8 [in_i] 65.8 [in_i] [facility] ([facility]) 5'5.80" Body weight 180.38 [lb_av] 180.38 [lb_av] MEDEN T ([facility]) Systolic blood pressure 124 mm[Hg] 124 mm[Hg] M EDENT ([facility]) Diastolic blood pressure 74 mm[Hg] 74 mm[Hg] [facility] ([facility]) Body height 65.8 [in_i] 65.8 [in_i] [facility] ([facility]) 5'5.80" Body weight 179.00 [lb_av] 179.00 [lb_av] MEDEN T ([facility]) Body mass index (BMI) [Ratio] 29.1 kg/m2 29.1 k g/m2 [facility] ([facility]) Heart rate 100 /min 100 /min [facility] ([facility]) Respiratory rate 18 /min 18 /min [facility] ( [facility]) Body temperature 98.1 [degF] 98.1 [degF] [facility] ([facility]) Oxygen saturation in Arterial blood by Pulse oximetry 99 % 99 % [facility] ([facility]) Body height 65.8 [in_i] 65.8 [in_i] [facility] ([facility]) 5'5.80" Body weight 178.00 [lb_av] 178.00 [lb_av] MEDEN T ([facility]) Systolic blood pressure 120 mm[Hg] 120 mm[Hg] M EDENT ([facility]) Diastolic blood pressure 80 mm[Hg] 80 mm[Hg] [facility] ([facility]) Heart rate 80 /min 80 /min [facility] ([facility]) Respiratory rate 16 /min 16 /min [facility] ( [facility]) Body temperature 98.1 [degF] 98.1 [degF] [facility] ([facility]) Oxygen saturation in Arterial blood by Pulse oximetry 99 % 99 % [facility] ([facility]) Body mass index (BMI) [Ratio] 28.9 kg/m2 28.9 k g/m2 [facility] ([facility]) Heart rate 90 /min 90 /min [facility] ([facility] Body height 66 [in_i] 66 [in_i] [facility]) 5'6" Body weight 175.00 [lb_av] 175.00 [lb_av] JANEEN T ([facility]) Body weight 79.380 kg 79.380 kg [facility] ([facility]) Body mass index (BMI) [Ratio] 28.2 kg/m2 28.2 k g/m2 [facility] ([facility]) Systolic blood pressure 131 mm[Hg] 131 mm[Hg] M EDENT ([facility]) Diastolic blood pressure 78 mm[Hg] 78 mm[Hg] [facility] ([facility]) Body temperature 97.7 [degF] 97.7 [degF] [facility] ([facility])
--- OUTSIDE RECORDS SUMMARY | 2020-11-17 14:34 | CCD | Continuity of Care Document ---
Author Author Kinsey FRANK PA Organization Unknown Address [place] [address] Phone [phone] Care Team Providers Care Windscreen Fitter Name Role Phone Miley Mayes D.O. [facility] [phone] Problems Active Problems Provider Date Moderate recurrent [...] Consumes 2 glasses of wine per w [facility] Tobacco Use Start: Unknown Patient has never [...] Suspe nsion Shake Liquid And Use 1 [place] In Each Nostril Twice Daily 51units Miley Mayes D.O. 08/03/2015 Zyrtec Allergy 10mg Tablets 1 by mouth every night 90tabs J30.2 Sari JaimesO. 02/25 Bupropion HCL ER (SR) 200mg Tablets ER 12HR 1 by mouth twice daily Unknown Clonazepam 0.5mg Tablets take one tablet by mouth twice a day. #[id number] Unknown Desvenlafaxine ER 100mg Tablets ER 24HR [...] CPT Code Status Date Vaccine Lot # [id number] Given 2019 Tetanus, Diphthe shad Toxoids/Acellular Pertussis Vaccine 7 Or > [id number] U-Flu Given 11/18/2018 Influenza,Unspecified U-Flu Given 12/13/2017 Influenza,Unspecified Vital Signs Date Vital Result Comment 09/16/2020 4:19pm BP Systolic 140 mmHg BP Diastolic 80 mmHg Height 65.8 inches 5'5.80" Heart Rate 99 /min Respiratory Rate 14 /min Body Temperature 99.0 F O2 % BldC Oximetry 99 % [place] Body Weight 125 lb 10/30/2019 1:46pm BP Systolic 128 mmHg BP Diastolic 78 mmHg Height 65.8 inches 5'5.80" Weight 180.38 lb BMI (Body Mass Index) 29.3 kg/m2 Heart Rate 106 /min Respiratory Rate 18 /min Body Temperature 98.8 F O2 % BldC Oximetry 99 % [place] Body Weight 125 lb Results Description No Information Available Procedures Date Code Description Status 11/23/2015 [id number] Mammogram Completed Medical Devices Description No Information Available Encounters Description No Information Available Assessments Date Code Description Provider 09/16/2020 N39.0 Urinary tract infection, site no t specified ANGELA Simon 09/16/2020 J06.9 Acute upper respiratory infectio n, unspecified ANGELA Simon Plan of Treatment Future Appointment(s):* 10/29/2020 8:40 am - Miley Mayes D.O. at [facility] 09/16/2020 - ANGELA Simon* N39.0 Urinary tract infection, site not specified* New Medication:* Ciprofloxacin HCL 500 mg - one tablet every 12 hours * Cephalexin 500 mg - take one tablet by mouth every 12 hours for seven days. * Cipro 500 mg - take one tablet by mouth every 12 hours for seven days. * J06.9 Acute upper respiratory infection, unspecified Functional Status Description No Information Available Mental Status Description No Information Available Referrals Description No Information Available
[2020-11-17] MEDS ORDERED: HEPATITIS B VACCINE 20MCG/ML 1ML SYRINGE (ADULT DOSE) IM ONE (20:05)
[2020-11-17 20:11] LABS: BASO # 0.1 10^3/uL (0.0-0.2); BASO % 0.6 % (0.0-1.0); EOS # 0.3 10^3/uL (0.0-0.5); EOS % 3.2 % (0.0-3.0); HEMATOCRIT 39.4 % (36.0-47.0); HEMOGLOBIN 12.8 g/dl (12.0-15.5); LYMPH # 3.1 10^3/uL (1.5-5.0); LYMPH % 31.7 % (24.0-44.0); MEAN CORPUSCULAR HEMOGLOBIN 29.2 pg (27.0-33.0); MEAN CORPUSCULAR HGB CONC 32.5 g/dl (32.0-36.5); MEAN CORPUSCULAR VOLUME 89.7 fl (80.0-96.0); MONO # 0.6 10^3/uL (0.0-0.8); MONO % 6.1 % (2.0-8.0); NEUTROPHILS # 5.6 10^3/uL (1.5-8.5); NEUTROPHILS % 58.2 % (36.0-66.0); PLATELET COUNT, AUTOMATED 349 10^3/uL (150-450); RED BLOOD COUNT 4.39 10^6/uL (4.00-5.40); WHITE BLOOD COUNT 9.7 10^3/uL (4.0-10.0)
[2020-11-17] MEDS ORDERED: CETIRIZINE (ZyrTEC) 10 MG TAB PO ONE (20:30)
[2020-11-17] MEDS ORDERED: methylPREDNISolone 125MG 2ML VIAL IV ONE (20:30)
[2020-11-17] MEDS ORDERED: EXPOSURE KIT-ADULT 7 DAY SUPPLY PO ONE (20:30)
[2020-11-17] MEDS ORDERED: RALTEGRAVIR 400 MG TAB (ISENTRESS) PO ONE (20:35)
[2020-11-17] MEDS ORDERED: TRUVADA 200MG/300MG TABLET PO ONE (20:35)
[2020-11-17 20:46] LABS: ALBUMIN 3.9 GM/DL (3.2-5.2); ALT/SGPT 20 U/L (12-78); BILIRUBIN,TOTAL 0.2 MG/DL (0.2-1.0); BLOOD UREA NITROGEN 10 MG/DL (7-18); CALCIUM LEVEL 8.4 MG/DL (8.5-10.1); CARBON DIOXIDE LEVEL 30 MEQ/L (21-32); CHLORIDE LEVEL 103 MEQ/L (98-107); CREATININE FOR GFR 0.67 MG/DL (0.55-1.30); GLOMERULAR FILTRATION RATE > 60.0 (>51); GLUCOSE, FASTING 85 MG/DL (70-100); HCG, SERUM QUALITATIVE NEGATIVE (NEGATIVE); POTASSIUM SERUM 3.7 MEQ/L (3.5-5.1); SODIUM LEVEL 139 MEQ/L (136-145); TOTAL PROTEIN 7.5 GM/DL (6.4-8.2)
[2020-11-17 20:48] LABS: HEPATITIS B SURFACE ANTIBODY NEGATIVE (POSITIVE)
[2020-11-17 20:59] LABS: HEPATITIS B SURFACE ANTIGEN NEGATIVE (NEGATIVE)
[2020-11-17] MEDS ORDERED: ONDA4TAB6 PO (21:03)
[2020-11-17] MEDS ORDERED: RALT40TA PO (21:03)
[2020-11-17] MEDS ORDERED: EMTR1TAB16 PO (21:03)
--- OUTSIDE RECORDS SUMMARY | 2020-11-17 21:08 | CCD ---
Author Author [facility] Organization [facility] Address Unknown Phone Unavailable Care Team Providers Care Orthotic/Prosthetic Practitioner Name Role Phone CARSON, Nathaly MILLER Unavailable Unavailable LETTIERE, Nathaly BOWIE PA Unavailable Unavailable LETTIERE, Nathaly BOWIE PA Unavailable Unavailable LETTIERE, Nathaly BOWIE PA Unavailable Unavailable LETTIERE, Nathaly BOWIE PA Unavailable Unavailable LETTIERE, Nathaly BOWIE PA Unavailable Unavailable LETTIERE, Nathlay BOWIE PA Unavailable Unavailable LETTIERE, Nathaly BOWIE [...] Smart MD, Filipe L Unavailable Smart MD, Fiilpe L Unavailable Smart MD, Filipe L Unavailable [...] Unavailable Unavailable ANNABELLE-SYLVIA, BRITTANY DO Unavailable Unavailable NANABELLE-SYLVIA, BRITTANY DO Unavailable Unavailable ANNABELLE-SYLVIA, BRITTANY DO [...] Unavailable ANNABELLE-SYLVIA, BRITTANY DO Unavailable Unavailable ANNABELLE-SYLVIA, BRTITANY DO Unavailable Unavailable ANNABELLE-SYLVIA, BRITTANY DO Unavailable [...] Unavailable Unavailable Mariano CHAVIRA MD Unavailable Unavailable Marinao CHAVIRA MD Unavailable Unavailable Mariano CHAVIRA MD [...] is protected by Article 27-F of the [facility] Public Health law. If you continue you may have access to information: Regarding HIV / AIDS; Provided by facilities licensed or operated by the [facility] Office of Mental Health; or Provided by the [facility] Office for People With Developmental Disabilities. If such information is present, then the following [facility] mandated warning applies: This information has been [...] law may result in a fine or longterm sentence or both. A general authorization for the release of medical or other information is NOT sufficient authorization for further disc losure. Family History Family Member Name Family Member Gender Family Member Status Date o f Status Description Data Source(s) Unknown Unknown Problem [facility] ([facility]) Unknown Female Problem [facility] ([facility]) Unknown Female Problem [facility] ([facility]) Unknown Female Problem [facility] ([facility]) Unknown Female Problem [facility] ([facility]) Unknown Female Problem [facility] ([facility]) Encounters Encounter Providers Location Date Indications Data Source(s ) Outpatient Attender: BRITTANY LISA DO [facility] 11/16/2020 09:40:00 AM EDT [facility] ([facility]) Outpatient Attender: Jamir MILLER [facility] 09/16/2020 04:00:00 PM EDT [facility] ([facility]) Outpatient Attender: Derek HARLEYeferrer: BRITTANY DONALD DO 09/02/2020 03:08:39 PM EDT [facility] Recurring Patient Attender: CLAUDIO CHAVIRA MDReferrer: LUZ GRAHAM 09/02/2020 08:03:51 AM EDT [facility] Recurring Patient Attender: CLAUDIO CHAVIRA MDReferrer: LUZ GRAHAM 07/15/2020 07:57:20 AM EDT [facility] Outpatient Attender: CLAUDIO FAN MDReferrer: BRITTANY GARCIA DO 06/24/2020 11:45:21 AM EDT [facility] Recurring Patient Attender: CLAUDIO DIAZEFANO MDReferrer: LUZ GRAHAM 06/24/2020 11:14:49 AM EDT [facility] Recurring Patient Attender: CLAUDIO FAN MDReferrer: LUZ GRAHAM 04/29/2020 08:14:08 AM EDT [facility] Outpatient Attender: Stone Greenberg JRReferrer: BRITTANY MELISSA DO 01/05/2020 09:12:28 PM EST [facility] Outpatient Attender: [place] 12/26/2019 07:40:00 AM EST [facility] ([facility] Outpatient Attender: JAMIR huber 12/08/2019 10:15:00 AM EST [facility] ([facility] Outpatient Attender: Jamir MILLER [facility] 10/30/2019 01:20:00 PM EDT [facility] ([facility]) Outpatient Attender: BRITTANY LISA DO [facility] 2019 08:00:00 AM EDT [facility] ([facility]) Outpatient Attender: Jamir MILLER [facility] 10/17/2019 10:40:00 AM EDT [facility] ([facility]) Outpatient Attender: [place]/ [facility] 09/24/2019 02:40:00 PM EDT [facility] ([facility]) Immunizations Vaccine Date Status Description Data Source(s) COVID-19 VACCINE Pfizer 03/05/2020 12:00:00 AM EST completed [facility] Vaccine Series Complete: YESThis Data wa s Submitted to [facility] Via [employer]. COVID-19 VACCINE Pfizer 02/13/2020 12:00:00 AM EST completed [facility] Vaccine Series Complete: NOThis Data was Submitted to [facility] Via [employer]. Tdap 2019 08:34:00 AM EDT completed EDENT ([facility]) Medications Medication Brand Name Start Date Product Form Dose Route Admi nistrative Instructions Pharmacy Instructions Status Indications Reaction Description Data Source(s) Cephalexin 500 MG Oral Tablet Cephalexin 09/16/2020 12:00:00 AM EDT ORAL completed [facility] ([facility]) Ciprofloxacin 500 MG Oral Tablet Ciprofloxacin HCL 09/16/2020 12:00 :00 AM EDT completed [facility] ([facility]) Ciprofloxacin 500 MG Oral Tablet Cipro 09/16/2020 12:00:00 AM EDT ORAL completed [facility] ([facility]) Immunization Administration Single Or Combination 2019 12:00:00 AM EDT completed [facility] ([facility]) Medication administered onsite Immunization Adminstration 2+ Single Or Combination 2019 12:00:00 AM EDT completed [facility] ([facility]) Medication administered onsite 24 HR mirabegron 50 MG Extended Release Oral Tablet [Myrbetr iq] Myrbetriq 09/24/2019 12:00:00 AM EDT ORAL active [facility] ([facility]) Insurance Providers Payer name Policy type / Coverage type Policy ID Covered democrat ID Covered democrat's relationship to desir Policy Desir Plan Information [place] F [id number] SPOUSE [id number] [place] F [id number] SPOUSE [id number] 1 EXCELLUS BCBS [id number] xxxxxxxxxxxx [id number] EX[employer] BCBS [id number] Spo YLS [id number] [employer] BCBS [id number] Spo [id number] [employer] BCBS [id number] [id number] [id number] Family Dependent [id number] [facility] [place] Commercial [id number] Family Dependent [id number] [facility] [id number] 2 [id number] [place] Plan Commercial [id number] Family Dependent [id number] [place] Plan Commercial [id number] Family Dependent [id number] [employer] (STATE EMP) O [id number] P [id number] [place] Plan Commercial [id number] Family Dependent [id number] [place] Plan Commercial [id number] Family Dependent [id number] [place] Plan Commercial [id number] Family Dependent [id number] [place] Plan Commercial [id number] Family Dependent [id number] [facility] [place] Commercial [id number] Family Dependent [id number] [place] Plan Commercial [id number] Family Dependent [id number] SELF PAY ONLY UNAVAILABLE SP UNAV AILABLE [place] Plan Commercial [id number] Family Dependent [facility] [id number] 2 [id number] [facility] [place] Commercial [id number] Family Depende nt STATE INSURANCE FUND CASE#[id number] SP [id number] [facility] P [id number] S [id number] OTHER WORKERS COMPENSATION N SP N OTHER WORKERS COMPENSATION [id number] SP [id number] BS [employer] MAICOL DIV [id number] [facility] ([facility]) P UNAVAILABLE P UNAVAILABLE [id number] CLAIMS MANGEMENT SER [id number] SP [id number] [facility] [id number] [facility] [id number] [id number] [employer] ([facility]) O [id number] S [id number] [place] Plan Commercial [id number] Family Dependent [id number] Problems, Conditions, and Diagnoses No Information Surgeries/Procedures Procedure Description Date Indications Data Source(s) OFFICE OUTPATIENT VISIT 15 MINUTES 11/16/2020 12:00:00 AM EDT [facility] ([facility]) PERIODIC PREVENTIVE MED EST PATIENT 40-64YRS 12:00:00 AM EDT [facility] ([facility]) OFFICE OUTPATIENT VISIT 25 MINUTES 09/16/2020 12:00:00 AM EDT [facility] ([facility]) NABEEL POST-VOIDING RESIDUAL URINE&/BLDR CAP 12/26/2019 12:00:00 AM EST [facility] ([facility]) Destruction Benign Lesions Other Than Skin Tags Or Cutan Vas cular 10/17/2019 12:00:00 AM EDT [facility] ([facility]) NABEEL POST-VOIDING RESIDUAL URINE&/BLDR CAP 09/24/2019 12:00:00 AM EDT [facility] ([facility]) Results ID Date Data Source [id number] 10/29/2020 12:00:00 AM EDT [facility] Name Value Range Interpretation Code Description Data Rukhsana rce(s) Supporting Document(s) SARS-COV-2 Negative [facility] This lab was ordered by [facility] and re ported by [facility]. ID Date Data Source [id number] 10/19/2020 02:13:00 PM EDT [facility] ([facility]) Name Value Range Interpretation Code Description Data Rukhsana rce(s) Supporting Document(s) Triglycerides Level 103 mg/dL Normal (applies to non-nume jo ann results) [facility] ([facility]) Cholesterol Level 231 mg/dL Above high normal [facility] ([facility]) Non-HDL-C 176 mg/dL Normal (applies to non-numeric resul ts) [facility] ([facility]) HDL Cholesterol 55 mg/dL Normal (applies to non-numeric results) [facility] ([facility]) LDL Cholesterol 155 mg/dL Above high normal [place] [facility] ([facility]) Cholesterol Risk Ratio 4.200 Normal (applies to non-n umeric results) [facility] ([facility]) ID Date Data Source [id number] 10/19/2020 02:13:00 PM EDT [facility] ([facility]) Name Value Range Interpretation Code Description Data Rukhsana rce(s) Supporting Document(s) White Blood Count 6.2 10 4.0-10.0 Normal (applies to non-numeri c results) [facility] ([facility]) Hemoglobin 13.1 g/dL 12.0-15.5 Normal (applies to non-numeric resul ts) [facility] ([facility]) Hematocrit 40.4 % 36.0-47.0 Normal (applies to non-numeric resul ts) [facility] ([facility]) Red Blood Count 4.48 10 4.00-5.40 Normal (applies to non-numeric results) [facility] ([facility]) Mean Corpuscular Hemoglobin 29.2 pg 27.0-33.0 Norm al (applies to non-numeric results) [facility] ([facility]) Mean Corpuscular Volume 90.2 fl 80.0-96.0 Normal ( applies to non-numeric results) [facility] ([facility]) Mean Corpuscular HGB Conc 32.4 g/dL 32.0-36.5 Normal (applies to non-numeric results) [facility] ([facility]) Neutrophils % 65.0 % 36.0-66.0 Normal (applies to non-numeric re sults) [facility] ([facility]) Red Cell Distribution Width 12.6 % 11.5-14.5 Norm al (applies to non-numeric results) [facility] ([facility]) Platelet Count, Automated 342 10 150-450 Normal (applies to non-numeric results) [facility] ([facility]) Eos % 1.8 % 0.0-3.0 Normal (applies to non-numeric resul ts) [facility] ([facility]) [place] % 6.9 % 2.0-8.0 Normal (applies to non-numeric resul ts) [facility] ([facility]) Lymph % 25.2 % 24.0-44.0 Normal (applies to non-numeric resul ts) [facility] ([facility]) Nucleated Red Blood Cell % 0.0 % 0-0 Normal (applies to n on-numeric results) [facility] ([facility]) Baso % 0.8 % 0.0-1.0 Normal (applies to non-numeric resul ts) [facility] ([facility]) Immature Granulocyte % 0.3 % 0-3.0 Normal (applies to non-n umeric results) [facility] ([facility]) [place] # 0.4 10 0.0-0.8 Normal (applies to non-numeric resul ts) [facility] ([facility]) Neutrophils # 4.1 10 1.5-8.5 Normal (applies to non-numeric re sults) [facility] ([facility]) Lymph # 1.6 10 1.5-5.0 Normal (applies to non-numeric resul ts) [facility] ([facility]) Eos # 0.1 10 0.0-0.5 Normal (applies to non-numeric resul ts) [facility] ([facility]) Baso # 0.1 10 0.0-0.2 Normal (applies to non-numeric resul ts) [facility] ([facility]) ID Date Data Source [id number] 10/19/2020 02:13:00 PM EDT [facility] ([facility]) Name Value Range Interpretation Code Description Data Rukhsana rce(s) Supporting Document(s) Thyroid Stimulating Hormone 1.940 uIU/ML 0.358-3.740 Norm al (applies to non- numeric results) [facility] Free T4 0.84 ng/dL 0.76-1.46 Normal (applies to non-numeric resul ts) [facility] ([facility]) ID Date Data Source [id number] 10/19/2020 02:13:00 PM EDT [facility] ([facility]) Name Value Range Interpretation Code Description Data Rukhsana rce(s) Supporting Document(s) Blood Urea Nitrogen 8 mg/dL 7-18 Normal (applies to non-nume jo ann results) [facility] ([facility]) Glucose, Fasting 107 mg/dL 70-100 Above high normal M [facility] ([facility]) Glomerular Filtration Rate Laboratory test result Normal (applies to non- numeric results) [facility] ([facility]) <content>Units are mL/min/1.73 m2</content>
<content></content>
<content>Chronic Kidney Disease Staging per NKF:</content>
<content></content>
<content>Stage I & II GFR >=60 Normal to Mildly Decreased</content>
<content>Stage III GFR 30- 59 Moderately Decreased</content>
<content>Stage IV GFR 15-29 Severely Decreased</content>
<content>Stage V GFR <15 Very Little GFR Left</content>
<content>ESRD GFR <15 on DOPE HEATER</content>
<content></content> Creatinine For GFR 0.63 mg/dL 0.55-1.30 Normal (applies to non -numeric results) [facility] ([facility]) Sodium Level 139 meq/L 136-145 Normal (applies to non-numeric res ults) [facility] ([facility]) Chloride Level 106 meq/L 98-107 Normal (applies to non-numeric r esults) [facility] ([facility]) Potassium Serum 4.5 meq/L 3.5-5.1 Normal (applies to non-numeric results) [facility] ([facility]) Calcium Level 9.1 mg/dL 8.5-10.1 Normal (applies to non-numeric re sults) [facility] ([facility]) Ast/Sgot 12 U/L 7-37 Normal (applies to non-numeric resul ts) [facility] ([facility]) Carbon Dioxide Level 28 meq/L 21-32 Normal (applies to non-num cydney results) [facility] ([facility]) Anion Gap 5 meq/L 8-16 Below low normal [facility] ( [facility]) Bilirubin,Total 0.3 mg/dL 0.2-1.0 Normal (applies to non-numeric results) [facility] ([facility]) Alt/SGPT 19 U/L 12-78 Normal (applies to non-numeric resul ts) [facility] ([facility]) Alkaline Phosphatase 75 U/L 45-117 Normal (applies to non-num cydney results) [facility] ([facility]) Total Protein 7.4 GM/DL 6.4-8.2 Normal (applies to non-numeric re sults) [facility] ([facility]) Albumin/Globulin Ratio 1.0 1.2-2.2 Below low normal [facility] ([facility]) Albumin 3.7 GM/DL 3.2-5.2 Normal (applies to non-numeric resul ts) [facility] ([facility]) ID Date Data Source [id number] 09/16/2020 04:51:00 PM EDT [facility] ([facility]) Name Value Range Interpretation Code Description Data Rukhsana rce(s) Supporting Document(s) Inhouse Leukocytes Laboratory test result [facility] ([facility]) Inhouse Urobilinogen Laboratory test result [facility] ([facility]) Inhouse Nitrite Laboratory test result [facility] ([facility]) Inhouse Protein Laboratory test result [facility] ([facility]) Inhouse Hemoglobin Laboratory test result [facility] ([facility]) Inhouse PH 5 [facility] ([facility] Inhouse Specific [place] 1.005 [facility] ([facility]) Inhouse Glucose Laboratory test result [facility] ([facility]) Inhouse Ketones Laboratory test result [facility] ([facility]) Inhouse Bilirubin Laboratory test result [facility] ([facility]) ID Date Data Source [id number] 09/16/2020 04:35:00 PM EDT [facility] ([facility]) Name Value Range Interpretation Code Description Data Rukhsana rce(s) Supporting Document(s) Bacteria identified in Urine by Culture Laboratory test result Normal (applies to non-numeric results) [facility] ([facility]) <content>FULL REPORT IN LAB NOTES (eCW [...] 2 S</content>
<content></content> ID Date Data Source [id number] 09/02/2020 03:08:39 PM EDT [facility] PC[facility]: Maria Elena VelardeB: 1965Provider: Derek Gutierrez: 09/02/2020 Reason For VisitCatherradha Velarde is here [...] OF PRESENT ILLNESSThe patient is a 54-year-old zefjx-hbfv-ocyrgxlo female who is here for evaluation of [...] today in theoffice. Indication: pain/dysfunction.); Status:Complete; Done: [id number] Perform:SOS29; Due:[id number]; Last Updated By:Lay Kennedy; 09/02/2020 8:17:37 AM;Ordered; [...] rce(s) Supporting Document(s) ID Date Data Source [id number] 06/24/2020 11:45:21 AM EDT [facility]: Maria Elena Bartlett: 1965Provider: Ferny Chavira: 06/24/2020 Reason For VisitMaria Elena Velarde is here today for Lumbar spine. Maria [...] of implants and healed fusion. Results/Data OtherMRI [facility] 09/26/17: Right L5-S1 disc herniation displacing the right is one nerve rootMRI lumbar [facility] 12/26/18: Right L5-S1 protrusion displacing the [...] different treatment conservative options(observation, medication(s), physical therapy, healthcare account manager, acupuncture, pain clinic, home exercise program, etc.)--- with pros and cons, potential risks/potential benefits of each option, as well as the chances of successes/failures of each option.At this time, they wish to proceed with:Home exercise program This document was dictated and electronically signed using [employer] software. A reasonable attempt at proof reading [...] Negative [facility] This lab [facility] by [facility] ID Date Data Source [id number] 02/20/2020 12:00:00 AM EST [facility] Name Value Range Interpretation Code Description Data Rukhsana rce(s) Supporting Document(s) SARS-CoV2 Rapid Antigen Negative [facility] This lab was ordered by [facility] and reported by [facility]. ID Date Data Source [id number] 01/05/2020 09:12:28 PM EST [facility] PCName: Maria Elena VelardeDOYasmin: 1965Provider: Vlad Antonio: 12/26/2019 Reason For VisitCatherradha [...] Previous urinary incontinence has resolved. Seen by [facility] urology and diagnosed with an overactive [...] document was dictated and electronically signed using [employer] software. A reasonable attempt at proof reading has been made to minimize errors. Please call with any questions. Signatures Electronically signed by : Ara Moseley; Jan 04 2020 8:34PM EST (Author) Electronically signed by : Claudio Chavira M.D.; Jan 05 2020 9:12PM EST Name Value Range Interpretation Code Description Data Rukhsana rce(s) Supporting Document(s) ID Date Data Source [id number] 12/26/2019 08:41:00 AM EST [facility] ([facility] Name Value Range Interpretation Code Description Data Rukhsana rce(s) Supporting Document(s) Protein [Presence] in Urine by Test strip Laboratory test result [facility] ([facility]) Glucose [Presence] in Urine Laboratory test result [facility] ([facility]) Blood [Presence] in Urine by Visual Laboratory test result [facility] ([facility]) Ua Leuko Laboratory test result [place] [facility] ([facility]) Ua Nitrite Laboratory test result [facility] ([facility]) Ketones [Presence] in Urine by Test strip Laboratory test result [facility] ([facility]) Clarity of Urine Laboratory test result [facility] ([facility]) Color of Urine Laboratory test result [facility] ([facility]) pH of Urine by Test strip 6.5 5.0-7.5 [facility] ([facility]) Ua Specific [place] 1.020 1.003-1.030 MEDE NT ([facility]) Bilirubin.total [Presence] in Urine by Test strip Laboratory test res ult [facility] ([facility]) Urobilinogen [Mass/volume] in Urine by Test strip 0.2 E.U./dL 0.0-1.0 [facility] ([facility]) ID Date Data Source [id number] 09/24/2019 02:39:00 PM EDT [facility] ([facility] Name Value Range Interpretation Code Description Data Rukhsana rce(s) Supporting Document(s) Ua Nitrite Laboratory test result [facility] ([facility]) Glucose [Presence] in Urine Laboratory test result [facility] ([facility]) Protein [Presence] in Urine by Test strip Laboratory test result [facility] ([facility]) Ua Leuko Laboratory test result [facility] ([facility]) Blood [Presence] in Urine by Visual Laboratory test result [facility] ([facility]) Ketones [Presence] in Urine by Test strip Laboratory test result [facility] ([facility]) Color of Urine Laboratory test result [facility] ([facility]) Ua Specific [place] 1.010 1.003-1.030 MED[facility] NT ([facility]) Clarity of Urine Laboratory test result [facility] ([facility]) pH of Urine by Test strip 6.0 5.0-7.5 [facility] ([facility]) Bilirubin.total [Presence] in Urine by Test strip Laboratory test res ult [facility] ([facility]) Urobilinogen [Mass/volume] in Urine by Test strip 0.2 E.U./dL 0.0-1.0 [facility] ([facility]) Procedure Social History Code Duration Value Status Description Data Source(s ) Smoking 11/16/2020 12:00:00 AM EDT Patient has never smoked co mpleted Patient has never smoked [facility] ([facility]) Smoking 12/26/2019 12:00:00 AM EST Never Smoked Cigarettes com pleted Never Smoked Cigarettes [facility] ([facility]) Smoking 12/08/2019 12:00:00 AM EST Patient has never smoked co mpleted Patient has never smoked [facility] ([facility]) Vital Signs ID Date Data Source [id number] Name Value Range Interpretation Code Description Data Source(s) Body weight 170.00 [lb_av] 170.00 [lb_av] MED[facility] T ([facility]) Systolic blood pressure 120 mm[Hg] 120 mm[Hg] M [facility] ([facility]) Body temperature 97.8 [degF] 97.8 [degF] MEDENT ([facility]) Oxygen saturation in Arterial blood by Pulse oximetry 98 % 98 % MEDENT ([facility]) [place] body weight 125 [lb_av] 125 [lb_av] MEDEN T ([facility]) Body mass index (BMI) [Ratio] 27.6 kg/m2 27.6 k g/m2 MEDENT ([facility]) Heart rate 81 /min 81 /min MEDENT ([facility]) Diastolic blood pressure 78 mm[Hg] 78 mm[Hg] MEDENT ([facility]) Body height 65.8 [in_i] 65.8 [in_i] MEDENT ([facility]) 5'5.80" Systolic blood pressure 140 mm[Hg] 140 mm[Hg] M EDENT ([facility]) Diastolic blood pressure 80 mm[Hg] 80 mm[Hg] MEDENT ([facility]) Body height 65.8 [in_i] 65.8 [in_i] MEDENT ([facility]) 5'5.80" Heart rate 99 /min 99 /min MEDENT ([facility]) Respiratory rate 14 /min 14 /min MEDENT ( [facility]) Body temperature 99.0 [degF] 99.0 [degF] MEDENT ([facility]) Oxygen saturation in Arterial blood by Pulse oximetry 99 % 99 % MEDENT ([facility]) [place] body weight 125 [lb_av] 125 [lb_av] MEDEN T ([facility]) Systolic blood pressure 136 mm[Hg] 136 mm[Hg] M LM ([facility]) Diastolic blood pressure 85 mm[Hg] 85 mm[Hg] MEDENT ([facility]) Heart rate 78 /min 78 /min MEDENT ([facility] Systolic blood pressure 142 mm[Hg] 142 mm[Hg] M EDJORDAN ([facility]) Body weight 175.00 [lb_av] 175.00 [lb_av] MEDEN T ([facility], [facility]) Body height 66 [in_i] 66 [in_i] MEDENT ([facility], [facility]) 5'6" Diastolic blood pressure 87 mm[Hg] 87 mm[Hg] MEDENT ([facility], [facility]) Body mass index (BMI) [Ratio] 28.2 kg/m2 28.2 k g/m2 MEDENT ([facility]) Heart rate 92 /min 92 /min MEDENT ([facility], [facility]) Respiratory rate 16 /min 16 /min MEDENT ( [facility]) Oxygen saturation in Arterial blood by Pulse oximetry 97 % 97 % MEDENT ([facility], [facility]) Body temperature 98.0 [degF] 98.0 [degF] MEDENT ([facility], [facility]) Diastolic blood pressure 78 mm[Hg] 78 mm[Hg] MEDENT ([facility]) Respiratory rate 18 /min 18 /min MEDENT ( [facility]) Systolic blood pressure 128 mm[Hg] 128 mm[Hg] [facility] Body height 65.8 [in_i] 65.8 [in_i] MEDENT ([facility]) 5'5.80" Body weight 180.38 [lb_av] 180.38 [lb_av] MEDEN T ([facility]) Body mass index (BMI) [Ratio] 29.3 kg/m2 29.3 k g/m2 MEDENT ([facility]) Heart rate 106 /min 106 /min MEDENT ([facility]) Body temperature 98.8 [degF] 98.8 [degF] MEDENT ([facility]) Oxygen saturation in Arterial blood by Pulse oximetry 99 % 99 % MEDENT ([facility]) [place] body weight 125 [lb_av] 125 [lb_av] MEDEN T ([facility]) Systolic blood pressure 124 mm[Hg] 124 mm[Hg] M EDENT ([facility]) Diastolic blood pressure 74 mm[Hg] 74 mm[Hg] MEDENT ([facility]) Body height 65.8 [in_i] 65.8 [in_i] MEDENT ([facility]) 5'5.80" Body weight 179.00 [lb_av] 179.00 [lb_av] MEDEN T ([facility]) Body mass index (BMI) [Ratio] 29.1 kg/m2 29.1 k g/m2 MEDENT ([facility]) Heart rate 100 /min 100 /min MEDENT ([facility]) Respiratory rate 18 /min 18 /min MEDENT ( [facility]) Body temperature 98.1 [degF] 98.1 [degF] MEDENT ([facility]) Oxygen saturation in Arterial blood by Pulse oximetry 99 % 99 % MEDENT ([facility]) Systolic blood pressure 120 mm[Hg] 120 mm[Hg] M EDENT ([facility]) Diastolic blood pressure 80 mm[Hg] 80 mm[Hg] MEDENT ([facility]) Body height 65.8 [in_i] 65.8 [in_i] MEDENT ([facility]) 5'5.80" Body weight 178.00 [lb_av] 178.00 [lb_av] MEDEN T ([facility]) Body mass index (BMI) [Ratio] 28.9 kg/m2 28.9 k g/m2 MEDENT ([facility]) Heart rate 80 /min 80 /min MEDENT ([facility]) Respiratory rate 16 /min 16 /min MEDENT ( [facility]) Body temperature 98.1 [degF] 98.1 [degF] MEDENT ([facility]) Oxygen saturation in Arterial blood by Pulse oximetry 99 % 99 % MEDENT ([facility]) Body height 66 [in_i] 66 [in_i] MEDJORDAN ([facility] 5'6" Heart rate 90 /min 90 /min RETA ([facility] Body weight 175.00 [lb_av] 175.00 [lb_av] JANEEN T ([facility]) Body weight 79.380 kg 79.380 kg RETA ([facility] Body mass index (BMI) [Ratio] 28.2 kg/m2 28.2 k g/m2 RETA ([facility]) Systolic blood pressure 131 mm[Hg] 131 mm[Hg] M EDENT ([facility]) Diastolic blood pressure 78 mm[Hg] 78 mm[Hg] RETA ([facility]) Body temperature 97.7 [degF] 97.7 [degF] RETA ([facility])
[2020-11-17 21:25] VITALS: BP 133/79
[2020-11-17 21:27] LABS: HEPATITIS C VIRUS ABY INDEX < 0.0 INDEX (<0.8)
[2020-11-17 21:28] LABS: HIV 1&2 SCREEN CENTAUR NEGATIVE (NEGATIVE)
[2020-11-18] MEDS ORDERED: TRUVADA 200MG/300MG TABLET PO SCH
[2020-11-18] MEDS ORDERED: RALTEGRAVIR 400 MG TAB (ISENTRESS) PO SCH
== END 2020-11-17 22:17 | disposition home or self-care (01) ==
LOC: M ED 14:27
DX: Z77.21 Contact with and (suspected) exposure to potentially hazardous body fluids (principal); S61.231A Puncture wound without foreign body of left index finger without damage to nail, initial encounter; W46.0XXA Contact with hypodermic needle, initial encounter; Y92.89 Other specified places as the place of occurrence of the external cause; Y99.0 Civilian activity done for income or pay; F33.9 Major depressive disorder, recurrent, unspecified; F41.9 Anxiety disorder, unspecified; Z88.5 Allergy status to narcotic agent; Z79.899 Other long term (current) drug therapy
CPT/HCPCS: 36415; 80053; 84703; 85025; 86706; 86803; 87340; 87389; 90471; 90746; 99283; J2930

== ENCOUNTER → 2021-03-23 | Outpatient (CLI) | payer BC, OTHER ==
[~2021-03-23] MED LIST changes: +DESV100T3; +EMTR1TAB16 PO; +MYRB50TA; +ONDA4TAB6 PO; +RALT40TA PO
== END ==
LOC: M PLAIMG 09:12
PROVIDERS: ATTEND Nurse Practitioner Adult Health
DX: M54.2 Cervicalgia (principal)

== ENCOUNTER → 2021-09-14 | Outpatient (CLI) | payer BC, OTHER ==
[2021-09-14 15:35] LABS: BASO # 0.1 10^3/uL (0.0-0.2); BASO % 0.9 % (0.0-1.0); EOS # 0.3 10^3/uL (0.0-0.5); EOS % 3.7 % (0.0-3.0); HEMOGLOBIN 13.9 g/dl (12.0-15.5); LYMPH # 2.1 10^3/uL (1.5-5.0); MEAN CORPUSCULAR HGB CONC 33.1 g/dl (32.0-36.5); MEAN CORPUSCULAR VOLUME 90.7 fl (80.0-96.0); MONO # 0.9 10^3/uL (0.0-0.8); MONO % 9.8 % (2.0-8.0); NEUTROPHILS # 5.6 10^3/uL (1.5-8.5); NEUTROPHILS % 62.2 % (36.0-66.0); PLATELET COUNT, AUTOMATED 329 10^3/uL (150-450); RED BLOOD COUNT 4.63 10^6/uL (4.00-5.40)
[2021-09-14 15:44] LABS: INR 0.89; PROTHROMBIN TIME 12.5 SECONDS (12.7-14.5)
[2021-09-14 16:09] LABS: ALBUMIN 3.4 GM/DL (3.2-5.2); ALT/SGPT 661 U/L (12-78); BILIRUBIN,TOTAL 0.2 MG/DL (0.2-1.0); BLOOD UREA NITROGEN 9 MG/DL (7-18); CALCIUM LEVEL 9.1 MG/DL (8.5-10.1); CARBON DIOXIDE LEVEL 30 MEQ/L (21-32); CHLORIDE LEVEL 103 MEQ/L (98-107); CREATININE FOR GFR 0.68 MG/DL (0.55-1.30); GLOMERULAR FILTRATION RATE > 60.0 (>51); GLUCOSE, FASTING 93 MG/DL (70-100); POTASSIUM SERUM 3.9 MEQ/L (3.5-5.1); SODIUM LEVEL 137 MEQ/L (136-145); TOTAL PROTEIN 7.8 GM/DL (6.4-8.2)
== END ==
LOC: M PLALAB 12:25
PROVIDERS: ATTEND Family Medicine
DX: Z01.818 Encounter for other preprocedural examination (principal)

== ENCOUNTER → 2021-09-16 | Outpatient (CLI) | payer BC, OTHER ==
[2021-09-16 10:30] LABS: BASO # 0.1 10^3/uL (0.0-0.2); BASO % 0.8 % (0.0-1.0); EOS # 0.3 10^3/uL (0.0-0.5); EOS % 4.3 % (0.0-3.0); HEMATOCRIT 42.6 % (36.0-47.0); LYMPH # 1.8 10^3/uL (1.5-5.0); LYMPH % 23.8 % (24.0-44.0); MEAN CORPUSCULAR HEMOGLOBIN 29.7 pg (27.0-33.0); MEAN CORPUSCULAR HGB CONC 32.9 g/dl (32.0-36.5); MEAN CORPUSCULAR VOLUME 90.4 fl (80.0-96.0); MONO # 0.7 10^3/uL (0.0-0.8); MONO % 9.2 % (2.0-8.0); NEUTROPHILS # 4.6 10^3/uL (1.5-8.5); NEUTROPHILS % 61.5 % (36.0-66.0); PLATELET COUNT, AUTOMATED 317 10^3/uL (150-450); RED BLOOD COUNT 4.71 10^6/uL (4.00-5.40); WHITE BLOOD COUNT 7.5 10^3/uL (4.0-10.0)
[2021-09-16 12:04] LABS: ALBUMIN 3.6 GM/DL (3.2-5.2); ALT/SGPT 694 U/L (12-78); BILIRUBIN,DIRECT 0.3 MG/DL (0.0-0.2); BILIRUBIN,TOTAL 0.6 MG/DL (0.2-1.0); BLOOD UREA NITROGEN 10 MG/DL (7-18); CALCIUM LEVEL 9.5 MG/DL (8.5-10.1); CARBON DIOXIDE LEVEL 27 MEQ/L (21-32); CHLORIDE LEVEL 101 MEQ/L (98-107); CREATININE FOR GFR 0.77 MG/DL (0.55-1.30); GLOMERULAR FILTRATION RATE > 60.0 (>51); GLUCOSE, FASTING 123 MG/DL (70-100); HEPATITIS B CORE ANTIBODY IGM NEGATIVE (NEGATIVE); HEPATITIS B SURFACE ANTIGEN NEGATIVE (NEGATIVE); HEPATITIS C VIRUS ABY INDEX < 0.0 INDEX (<0.8); LIPASE 147 U/L (73-393); POTASSIUM SERUM 4.8 MEQ/L (3.5-5.1); SODIUM LEVEL 135 MEQ/L (136-145); TOTAL PROTEIN 7.7 GM/DL (6.4-8.2)
== END ==
LOC: M PLALAB 09:09
PROVIDERS: ATTEND Physician Assistant
DX: R94.5 Abnormal results of liver function studies (principal)

== ENCOUNTER → 2021-09-20 | Outpatient (CLI) | payer BC, OTHER ==
[~2021-09-20] MED LIST changes: +GASTROGRAFIN SOLUTION 30ML (Q9963) As Ordered ONE; +ISOVUE-370 76% 100ML VIAL As Ordered ONE
== END ==
LOC: M RAD 09:34
PROVIDERS: ATTEND Physician Assistant
DX: R74.01 Elevation of levels of liver transaminase levels (principal)
CPT/HCPCS: 74177; Q9963; Q9967

== ENCOUNTER → 2021-10-03 | Outpatient (CLI) | payer BC, OTHER ==
[~2021-10-03] MED LIST changes: -GASTROGRAFIN SOLUTION 30ML (Q9963) As Ordered ONE; -ISOVUE-370 76% 100ML VIAL As Ordered ONE
[2021-10-03 14:36] LABS: ALBUMIN 3.6 GM/DL (3.2-5.2); BILIRUBIN,DIRECT 0.2 MG/DL (0.0-0.2); BILIRUBIN,TOTAL 0.5 MG/DL (0.2-1.0); TOTAL PROTEIN 7.8 GM/DL (6.4-8.2)
== END ==
LOC: M PLALAB 09:27
PROVIDERS: ATTEND Surgery
DX: R94.5 Abnormal results of liver function studies (principal)

== ENCOUNTER → 2021-12-13 | Outpatient (CLI) | payer BC, OTHER ==
[2021-12-13 11:26] LABS: APPEARANCE, URINE MANUAL CLEAR (CLEAR); BILIRUBIN, URINE MANUAL NEGATIVE (NEGATIVE); BLOOD URINE MANUAL NEGATIVE (NEGATIVE); COLOR, URINE MANUAL YELLOW (YELLOW); GLUCOSE, URINE (UA) MANUAL NEGATIVE (NEGATIVE); KETONE, URINE MANUAL NEGATIVE (NEGATIVE); LEUKOCYTE ESTERASE, URINE MAN NEGATIVE (NEGATIVE); NITRITE, URINE MANUAL NEGATIVE (NEGATIVE); PROTEIN, URINE MANUAL NEGATIVE (NEGATIVE); UROBILINOGEN, URINE MANUAL NORMAL (NORMAL)
[2021-12-13 11:51] LABS: BASO % 0.5 % (0.0-1.0); EOS # 0.2 10^3/uL (0.0-0.5); EOS % 2.6 % (0.0-3.0); HEMATOCRIT 41.8 % (36.0-47.0); HEMOGLOBIN 13.3 g/dl (12.0-15.5); LYMPH # 2.1 10^3/uL (1.5-5.0); LYMPH % 27.8 % (24.0-44.0); MEAN CORPUSCULAR HEMOGLOBIN 29.9 pg (27.0-33.0); MEAN CORPUSCULAR HGB CONC 31.8 g/dl (32.0-36.5); MEAN CORPUSCULAR VOLUME 93.9 fl (80.0-96.0); MONO # 0.6 10^3/uL (0.0-0.8); MONO % 7.7 % (2.0-8.0); NEUTROPHILS # 4.7 10^3/uL (1.5-8.5); NEUTROPHILS % 61.1 % (36.0-66.0); PLATELET COUNT, AUTOMATED 299 10^3/uL (150-450); RED BLOOD COUNT 4.45 10^6/uL (4.00-5.40); WHITE BLOOD COUNT 7.7 10^3/uL (4.0-10.0)
[2021-12-13 12:01] LABS: INR 0.95; PARTIAL THROMBOPLASTIN TIME 27.6 SECONDS (24.8-34.2); PROTHROMBIN TIME 12.8 SECONDS (12.5-14.5)
[2021-12-13 14:58] LABS: ALBUMIN 3.5 GM/DL (3.2-5.2); ALT/SGPT 20 U/L (12-78); BILIRUBIN,TOTAL 0.3 MG/DL (0.2-1.0); BLOOD UREA NITROGEN 13 MG/DL (7-18); CALCIUM LEVEL 9.1 MG/DL (8.5-10.1); CARBON DIOXIDE LEVEL 25 MEQ/L (21-32); CHLORIDE LEVEL 102 MEQ/L (98-107); CREATININE FOR GFR 0.74 MG/DL (0.55-1.30); GLOMERULAR FILTRATION RATE > 60.0 (>51); GLUCOSE, FASTING 121 MG/DL (70-100); POTASSIUM SERUM 4.5 MEQ/L (3.5-5.1); SODIUM LEVEL 134 MEQ/L (136-145); TOTAL PROTEIN 7.5 GM/DL (6.4-8.2)
== END ==
LOC: M PLALAB 08:09
PROVIDERS: ATTEND Physician Assistant
DX: Z01.818 Encounter for other preprocedural examination (principal)

== ENCOUNTER → 2022-10-04 | Outpatient (CLI) | payer BC, OTHER ==
[2022-10-04 15:30] LABS: BASO # 0.1 10^3/uL (0.0-0.2); BASO % 0.8 % (0.0-1.0); EOS # 0.3 10^3/uL (0.0-0.5); HEMATOCRIT 38.1 % (36.0-47.0); HEMOGLOBIN 12.4 g/dl (12.0-15.5); LYMPH # 1.8 10^3/uL (1.5-5.0); LYMPH % 29.2 % (24.0-44.0); MEAN CORPUSCULAR HEMOGLOBIN 30.2 pg (27.0-33.0); MEAN CORPUSCULAR HGB CONC 32.5 g/dl (32.0-36.5); MEAN CORPUSCULAR VOLUME 92.9 fl (80.0-96.0); MONO # 0.5 10^3/uL (0.0-0.8); MONO % 7.3 % (2.0-8.0); NEUTROPHILS # 3.5 10^3/uL (1.5-8.5); NEUTROPHILS % 57.4 % (36.0-66.0); PLATELET COUNT, AUTOMATED 353 10^3/uL (150-450); WHITE BLOOD COUNT 6.2 10^3/uL (4.0-10.0)
[2022-10-04 15:53] LABS: LIPASE 93 U/L (12-53)
[2022-10-04 15:54] LABS: AMYLASE 100 U/L (30-118)
[2022-10-04 15:55] LABS: ALBUMIN 3.9 G/DL (3.2-5.2); ALKALINE PHOSPHATASE 64 U/L (46-116); ALT/SGPT 10 U/L (7.0-40); AST/SGOT < 8 U/L (<34); BILIRUBIN,TOTAL 0.3 MG/DL (0.3-1.2); BLOOD UREA NITROGEN 11 MG/DL (9-23); CALCIUM LEVEL 8.9 MG/DL (8.5-10.1); CARBON DIOXIDE LEVEL 32 MMOL/L (20-31); CHLORIDE LEVEL 103 MMOL/L (98-107); CREATININE FOR GFR 0.68 MG/DL (0.55-1.30); GLOMERULAR FILTRATION RATE > 60.0 (>51); GLUCOSE, FASTING 91 MG/DL (60-100); POTASSIUM SERUM 4.7 MMOL/L (3.5-5.1); SODIUM LEVEL 140 MMOL/L (136-145); TOTAL PROTEIN 7.1 G/DL (5.7-8.2)
== END ==
LOC: M PLALAB 11:13
PROVIDERS: ATTEND Family Medicine
DX: R10.11 Right upper quadrant pain (principal)

== ENCOUNTER → 2022-10-04 | Outpatient (CLI) | payer BC, OTHER | LOC: M RAD 13:36 | PROVIDERS: ATTEND Family Medicine | DX: K80.20 Calculus of gallbladder without cholecystitis without obstruction (principal) ==

== ENCOUNTER 2022-11-30 14:10 | Emergency (ER) | payer BC, OTHER ==
[~2022-11-30] VITALS: Ht 167.6 cm; Wt 71.0 kg
[~2022-11-30 14:10] MED LIST changes: -MYRB50TA; +MYRB50TA PO
[2022-11-30] MEDS ORDERED: NITROGLYCERIN 0.4MG SUBL TABLET SL PRN (14:35)
[2022-11-30] MEDS ORDERED: ASPIRIN 81MG CHEW TABLET PO ONE (14:35)
[2022-11-30 15:04] LABS: BASO % 0.6 % (0.0-1.0); EOS # 0.2 10^3/uL (0.0-0.5); EOS % 2.2 % (0.0-3.0); HEMATOCRIT 37.2 % (36.0-47.0); HEMOGLOBIN 12.4 g/dl (12.0-15.5); LYMPH % 28.9 % (24.0-44.0); MEAN CORPUSCULAR HEMOGLOBIN 30.5 pg (27.0-33.0); MEAN CORPUSCULAR HGB CONC 33.3 g/dl (32.0-36.5); MEAN CORPUSCULAR VOLUME 91.6 fl (80.0-96.0); MONO # 0.8 10^3/uL (0.0-0.8); MONO % 11.1 % (2.0-8.0); NEUTROPHILS % 56.9 % (36.0-66.0); PLATELET COUNT, AUTOMATED 303 10^3/uL (150-450); RED BLOOD COUNT 4.06 10^6/uL (4.00-5.40)
[2022-11-30 15:30] LABS: LIPASE 48 U/L (12-53)
[2022-11-30 15:32] LABS: ALBUMIN 3.8 G/DL (3.2-5.2); ALKALINE PHOSPHATASE 64 U/L (46-116); ALT/SGPT 13 U/L (7.0-40); AST/SGOT 22 U/L (<34); BILIRUBIN,DIRECT < 0.1 MG/DL (<0.4); BILIRUBIN,TOTAL 0.2 MG/DL (0.3-1.2); BLOOD UREA NITROGEN 11 MG/DL (9-23); CARBON DIOXIDE LEVEL 30 MMOL/L (20-31); CHLORIDE LEVEL 101 MMOL/L (98-107); CK-MB VALUE MASS < 1.0 NG/ML (<3.6); CREATININE FOR GFR 0.56 MG/DL (0.55-1.30); GLOMERULAR FILTRATION RATE > 60.0 (>51); GLUCOSE, FASTING 64 MG/DL (60-100); POTASSIUM SERUM 4.3 MMOL/L (3.5-5.1); SODIUM LEVEL 137 MMOL/L (136-145)
[2022-11-30 15:34] LABS: FREE T4 0.78 NG/DL (0.89-1.76); INR 1.07; PROTHROMBIN TIME 13.6 SECONDS (12.5-14.5); THYROID STIMULATING HORMONE 2.449 uIU/ML (0.55-4.78)
[2022-11-30 15:35] LABS: PARTIAL THROMBOPLASTIN TIME 27.6 SECONDS (24.8-34.2)
[2022-11-30 15:37] LABS: CPK CREATINE PHOSPHOKINASE 72 U/L (34-145); MB/CK RELATIVE INDEX 1.38 (< OR =4)
[2022-11-30 15:39] LABS: RSV AMPLIFICATION NEGATIVE (NEGATIVE)
[2022-11-30] MEDS ORDERED: ISOVUE-370 76% 100ML VIAL As Ordered ONE (15:53)
[2022-11-30 16:45] LABS: CK-MB VALUE MASS < 1.0 NG/ML (<3.6)
[2022-11-30 16:46] LABS: CPK CREATINE PHOSPHOKINASE 48 U/L (34-145); MB/CK RELATIVE INDEX 2.08 (< OR =4)
[2022-11-30 17:30] VITALS: BP 137/80; O2SAT 98
[2022-11-30 17:41] VITALS: TEMP 96.9
[2022-12-04] MEDS ORDERED: ZOMI2.5T4 PO (13:27)
[2022-12-04] MEDS ORDERED: BUPR1TAB56 PO (13:27)
[2022-12-04] MEDS ORDERED: METH-1164 PO (13:27)
== END 2022-11-30 17:51 | disposition home or self-care (01) ==
LOC: M ED 14:10
DX: R07.9 Chest pain, unspecified (principal); R19.5 Other fecal abnormalities; N83.292 Other ovarian cyst, left side; F41.9 Anxiety disorder, unspecified; F32.A Depression, unspecified; Z79.899 Other long term (current) drug therapy; Z88.5 Allergy status to narcotic agent; Z88.8 Allergy status to other drugs, medicaments and biological substances
CPT/HCPCS: 71045; 71275; 74177; 80048; 80076; 82550; 82553; 83690; 84439; 84443; 84484; 85025; 85610; 85730; 87631; 93005; 93041; 94760; 99285; Q9967

== ENCOUNTER 2022-12-18 06:24 | Day surgery (SDC) | payer BC, OTHER ==
[~2022-12-18] VITALS: Ht 167.6 cm; Wt 69.9 kg
[~2022-12-18 06:24] MED LIST changes: +BUPR1TAB56 PO; +METH-1164 PO; +ZOMI2.5T4 PO
[2022-12-18] MEDS ORDERED: LR 1,000 ML IV SCH ×2 (06:30→08:35)
[2022-12-18] MEDS ORDERED: fentaNYL 100 MCG/2 ML INJECTION As Ordered ONE ×2 (07:05→07:56)
[2022-12-18] MEDS ORDERED: MIDAZOLAM INJ 2MG/2ML VIAL As Ordered ONE (07:05)
[2022-12-18] MEDS ORDERED: propofoL 200 MG/20 ML VIAL As Ordered ONE (07:07)
[2022-12-18] MEDS ORDERED: ROCURONIUM BROMIDE 50MG/5ML VIAL As Ordered ONE (07:07)
[2022-12-18] MEDS ORDERED: LIDOCAINE 2% 100MG/5ML SDV (FOR ANES.) As Ordered ONE (07:07)
[2022-12-18] MEDS ORDERED: KETOROLAC 60MG 2ML VIAL As Ordered ONE (07:08)
[2022-12-18] MEDS ORDERED: ONDANSETRON 4MG 2ML VIAL As Ordered ONE (07:08)
[2022-12-18] MEDS ORDERED: ACETAMINOPHEN 1000MG 100ML IV BAG As Ordered ONE (07:45)
[2022-12-18] MEDS ORDERED: dexmedeTOMIDine (4MCG/ML)200MCG/50ML BTL (PRECEDEX) As Ordered ONE (07:51)
[2022-12-18] MEDS ORDERED: GLYCOPYRROLATE INJ 0.2 MG/ML 2 ML VIAL As Ordered ONE (07:58)
[2022-12-18] MEDS ORDERED: ePHEDrine SULFATE 25 MG/5 ML(5MG/ML) SYRINGE As Ordered ONE (08:04)
[2022-12-18] MEDS ORDERED: PHENYLephrine 500MCG 5ML (100MCG/ML) SYRINGE As Ordered ONE (08:04)
[2022-12-18] MEDS ORDERED: SUGAMMADEX SODIUM 500 MG/5 ML VIAL (BRIDION) As Ordered ONE (08:14)
[2022-12-18] MEDS ORDERED: ONDANSETRON 4MG 2ML VIAL IV PRN (08:35)
[2022-12-18] MEDS ORDERED: fentaNYL 100 MCG/2 ML INJECTION IV PRN (08:35)
[2022-12-18] MEDS ORDERED: HYDROMORPHONE HCL 0.5 MG/ 0.5 ML SYRINGE IV PRN (08:35)
[2022-12-18 09:43] VITALS: BP 140/75; TEMP 100.4; O2SAT 97
== END 2022-12-18 10:12 | disposition home or self-care (01) ==
LOC: M SDC 06:24
PROVIDERS: ATTEND Surgery
DX: K80.10 Calculus of gallbladder with chronic cholecystitis without obstruction (principal); R07.9 Chest pain, unspecified; K21.9 Gastro-esophageal reflux disease without esophagitis; F32.A Depression, unspecified; F41.9 Anxiety disorder, unspecified; R06.83 Snoring; Z88.5 Allergy status to narcotic agent; Z88.8 Allergy status to other drugs, medicaments and biological substances; Z79.899 Other long term (current) drug therapy
CPT/HCPCS: 47562; 81025; 88304; 93005; J0131; J0665; J1100; J1885; J2250; J2371; J2405; J3010; S2900

== ENCOUNTER 2023-02-21 07:52 | Day surgery (SDC) | payer BC, OTHER ==
[~2023-02-21] VITALS: Ht 167.6 cm; Wt 70.5 kg
[~2023-02-21 07:52] MED LIST changes: +NS 1,000 ML IV ONE
[2023-02-21] MEDS ORDERED: propofoL 200 MG/20 ML VIAL As Ordered ONE (08:52)
[2023-02-21 09:16] VITALS: TEMP 97.3
[2023-02-21 09:40] VITALS: BP 110/68; O2SAT 99
== END 2023-02-21 09:49 | disposition home or self-care (01) ==
LOC: M OPP 07:52
PROVIDERS: ATTEND Surgery
DX: Z12.11 Encounter for screening for malignant neoplasm of colon (principal); K63.5 Polyp of colon; Z79.51 Long term (current) use of inhaled steroids; Z79.899 Other long term (current) drug therapy; Z88.5 Allergy status to narcotic agent; Z88.8 Allergy status to other drugs, medicaments and biological substances

== ENCOUNTER → 2023-06-13 | Outpatient (CLI) | payer BC ==
[~2023-06-13] MED LIST changes: +ISOVUE-370 76% 100ML VIAL ONE; -NS 1,000 ML IV ONE
== END ==
LOC: M PLAIMG 08:19
PROVIDERS: ATTEND Family Medicine
DX: M25.562 Pain in left knee (principal); D48.0 Neoplasm of uncertain behavior of bone and articular cartilage; M17.0 Bilateral primary osteoarthritis of knee
CPT/HCPCS: 70470; 73564; Q9967

== ENCOUNTER → 2023-06-13 | Outpatient (CLI) | payer BC ==
[~2023-06-13] MED LIST changes: -ISOVUE-370 76% 100ML VIAL ONE
== END ==
LOC: M WHC 08:20
PROVIDERS: ATTEND Family Medicine
DX: Z12.31 Encounter for screening mammogram for malignant neoplasm of breast (principal)

== ENCOUNTER → 2024-01-15 | Outpatient (CLI) | payer BC ==
[~2024-01-15] MED LIST changes: +GABA-1172 PO; -GABA-282 PO; +ONDA-282 PO; -ONDA4TAB6 PO
[2024-01-15 14:28] LABS: BASO % 0.6 % (0.0-1.0); EOS # 1.1 10^3/uL (0.0-0.5); EOS % 15.7 % (0.0-3.0); HEMATOCRIT 42.5 % (36.0-47.0); HEMOGLOBIN 13.9 g/dl (12.0-15.5); LYMPH # 2.1 10^3/uL (1.5-5.0); LYMPH % 28.9 % (24.0-44.0); MEAN CORPUSCULAR HEMOGLOBIN 30.3 pg (27.0-33.0); MEAN CORPUSCULAR HGB CONC 32.7 g/dl (32.0-36.5); MEAN CORPUSCULAR VOLUME 92.6 fl (80.0-96.0); MONO # 0.5 10^3/uL (0.0-0.8); MONO % 7.2 % (2.0-8.0); NEUTROPHILS # 3.4 10^3/uL (1.5-8.5); NEUTROPHILS % 47.3 % (36.0-66.0); PLATELET COUNT, AUTOMATED 347 10^3/uL (150-450); RED BLOOD COUNT 4.59 10^6/uL (4.00-5.40); WHITE BLOOD COUNT 7.1 10^3/uL (4.0-10.0)
[2024-01-15 14:36] LABS: ERYTHROCYTE SEDIMENTATION RATE 26 mm/hr (0-30)
[2024-01-15 14:52] LABS: LIPASE 47 U/L (12-53)
[2024-01-15 14:54] LABS: ALBUMIN 3.9 G/DL (3.2-5.2); ALKALINE PHOSPHATASE 78 U/L (35-104); ALT/SGPT 20 U/L (7.0-40); AMYLASE 86 U/L (30-118); AST/SGOT 18 U/L (<34); BILIRUBIN,TOTAL 0.3 MG/DL (0.3-1.2); BLOOD UREA NITROGEN 11 MG/DL (9-23); C REACTIVE PROTEIN QUANTITATIV 0.86 MG/DL (<1.0); CALCIUM LEVEL 9.9 MG/DL (8.5-10.1); CARBON DIOXIDE LEVEL 30 MMOL/L (20-31); CHLORIDE LEVEL 102 MMOL/L (98-107); GLOMERULAR FILTRATION RATE > 60.0 (>51); GLUCOSE, FASTING 110 MG/DL (60-100); POTASSIUM SERUM 4.4 MMOL/L (3.5-5.1); SODIUM LEVEL 139 MMOL/L (136-145); TOTAL PROTEIN 7.9 G/DL (5.7-8.2)
[2024-01-15 15:15] LABS: HEPATITIS B SURFACE ANTIGEN NEGATIVE (NEGATIVE)
[2024-01-15 15:35] LABS: HEPATITIS B CORE ANTIBODY IGM NEGATIVE (NEGATIVE); HEPATITIS C VIRUS ABY INDEX < 0.02 INDEX (<0.8)
== END ==
LOC: M PLALAB 11:09
PROVIDERS: ATTEND Nurse Practitioner Adult Health
DX: R10.31 Right lower quadrant pain (principal)

== ENCOUNTER → 2024-01-16 | Outpatient (REF) | payer BC, OTHER | LOC: M LAB REF 10:40 | PROVIDERS: ATTEND Nurse Practitioner Adult Health | DX: R19.7 Diarrhea, unspecified (principal) ==

== ENCOUNTER → 2024-01-25 | Outpatient (CLI) | payer BC ==
[~2024-01-25] MED LIST changes: +GASTROGRAFIN SOLUTION 30ML ONE; +ISOVUE-370 76% 100ML VIAL ONE
== END ==
LOC: M PLAIMG 09:04
PROVIDERS: ATTEND Nurse Practitioner Adult Health
DX: R10.31 Right lower quadrant pain (principal)
CPT/HCPCS: 74177; Q9963; Q9967

== ENCOUNTER → 2024-11-17 | Outpatient (CLI) | payer BC ==
[~2024-11-17] MED LIST changes: -BUPR1TAB56 PO; +BUPR200T45 PO; -GASTROGRAFIN SOLUTION 30ML ONE; -ISOVUE-370 76% 100ML VIAL ONE
[2024-11-17 10:33] LABS: BASO # 0.1 10^3/uL (0.0-0.2); BASO % 0.5 % (0.0-1.0); EOS # 0.1 10^3/uL (0.0-0.5); EOS % 1.3 % (0.0-3.0); LYMPH # 3.6 10^3/uL (1.5-5.0); LYMPH % 37.9 % (24.0-44.0); MONO # 0.6 10^3/uL (0.0-0.8); MONO % 6.2 % (2.0-8.0); NEUTROPHILS # 5.1 10^3/uL (1.5-8.5); NEUTROPHILS % 53.9 % (36.0-66.0); PLATELET COUNT, AUTOMATED 329 10^3/uL (150-450)
[2024-11-17 10:38] LABS: ALT/SGPT 17 U/L (7.0-40); AST/SGOT 13 U/L (<34); CALCIUM LEVEL 9.0 MG/DL (8.5-10.1); CARBON DIOXIDE LEVEL 30 MMOL/L (20-31); CHLORIDE LEVEL 104 MMOL/L (98-107); CHOLESTEROL LEVEL 211 MG/DL (<200); CHOLESTEROL RISK RATIO 3.87 (<5); CREATININE FOR GFR 0.68 MG/DL (0.55-1.30); FREE T4 0.94 NG/DL (0.89-1.76); GLOMERULAR FILTRATION RATE > 90.0 (>51); LDL CHOLESTEROL 122.1 MG/DL (<100); NON-HDL-C 156.5 MG/DL; POTASSIUM SERUM 4.0 MMOL/L (3.5-5.1); SODIUM LEVEL 144 MMOL/L (136-145); TOTAL 25(OH) VITAMIN D 23.7 NG/ML (20.0-100.0); TRIGLYCERIDES LEVEL 172 MG/DL (<150)
== END ==
LOC: M PLALAB 07:45
PROVIDERS: ATTEND Family Medicine
DX: M54.16 Radiculopathy, lumbar region (principal); E55.9 Vitamin D deficiency, unspecified; Z13.29 Encounter for screening for other suspected endocrine disorder; Z13.220 Encounter for screening for lipoid disorders; Z13.0 Encounter for screening for diseases of the blood and blood-forming organs and certain disorders involving the immune mechanism